=== PATIENT | male | born 1935 | race Caucasian/White ===

== ENCOUNTER 2017-09-04 03:00 | Inpatient (IN) | payer OTHER, MEDICARE ==
[~2017-09-04] VITALS: Ht 172.7 cm; Wt 92.0 kg
[2017-09-04 03:14] LABS: PCO2 Arterial 31.9 mmHg (35-45); PO2 Arterial 80.1 mmHg (80-100)
[2017-09-04 03:16] LABS: BASOPHILS ABSOLUTE AUTO 0.02 K/mm3 (0.00-0.23); BASOPHILS PERCENT AUTO 0 % (0-2); EOSINOPHILS ABSOLUTE AUTO 0.02 K/mm3 (0.00-0.68); EOSINOPHILS PERCENT AUTO 0 % (0-6); Hematocrit 39.6 % (37.0-53.0); Hemoglobin 13.7 g/dL (13.5-17.5); IMMATURE GRAN ABSOLUTE AUTO 0.11 K/mm3 (0.00-0.10); IMMATURE GRAN PERCENT AUTO 1 % (0-1); LYMPHOCYTES ABSOLUTE AUTO 0.56 K/mm3 (0.84-5.20); LYMPHOCYTES PERCENT AUTO 6 % (21-46); MONOCYTES ABSOLUTE AUTO 0.25 K/mm3 (0.16-1.47); MONOCYTES PERCENT AUTO 3 % (4-13); Mean Corpuscular HGB 32.4 pg (26.0-34.0); Mean Corpuscular HGB Conc 34.6 g/dL (31.5-36.5); Mean Corpuscular Volume 94 fL (80-100); NEUTROPHILS ABSOLUTE AUTO 8.95 K/mm3 (1.96-9.15); NEUTROPHILS PERCENT AUTO 90 % (41-73); Platelet Count 172 K/mm3 (150-400); RDW Coefficient Variation 12.9 % (11.7-14.2); RDW Standard Deviation 44.2 fL (35.1-46.3); Red Blood Cell Count 4.23 M/mm3 (4.30-5.90); White Blood Cell Count 9.91 K/mm3 (4.00-11.30)
[2017-09-04] MEDS ORDERED: ATOR80 PO (03:24)
[2017-09-04] MEDS ORDERED: ETOD400 PO (03:25)
[2017-09-04] MEDS ORDERED: GABA400 PO (03:26)
[2017-09-04] MEDS ORDERED: HYDROXYZINE (03:27)
[2017-09-04] MEDS ORDERED: HYDROCODONE (03:27)
[2017-09-04] MEDS ORDERED: Isosorbide Mono30 MG PO (03:28)
[2017-09-04] MEDS ORDERED: LISI5 PO (03:29)
[2017-09-04] MEDS ORDERED: METO25 (03:29)
[2017-09-04] MEDS ORDERED: PRAZ5 PO (03:30)
[2017-09-04] MEDS ORDERED: SENN187 PO (03:30)
[2017-09-04] MEDS ORDERED: Venlafaxine HC100 MG PO (03:31)
[2017-09-04 03:38] LABS: Alanine Aminotransfer (ALT/SGP 33 U/L (12-78); Albumin, Blood 3.1 g/dL (3.4-5.0); Albumin/Globulin Ratio 0.9 (0.8-1.8); Alk Phos 101 U/L (50-136); Anion Gap 9 mmol/L (6-16); Aspartate Aminotrans (AST/SGOT 21 U/L (12-37); Bilirubin, Total 0.6 mg/dL (0.1-1.0); Blood Urea Nitrogen 24 mg/dL (8-24); Bun/Creatinine Ratio 26.7 (12.0-20.0); CO2, Blood 24 mmol/L (21-32); Calcium, Blood 8.5 mg/dL (8.5-10.1); Chloride, Blood 110 mmol/L (98-108); Globulin, Blood 3.4 g/dL (2.2-4.0); Glomerular Filtration Rate >60 (60-); Glucose, Blood 164 mg/dL (70-99); Potassium, Blood 4.6 mmol/L (3.5-5.5); Sodium, Blood 143 mmol/L (136-145); Total Protein, Blood 6.5 g/dL (6.4-8.2)
[2017-09-04 04:19] LABS: Troponin I <0.015 ng/mL (0.000-0.040)
[2017-09-04] MEDS ORDERED: Omeprazole20 M1 (06:51)
[2017-09-04] MEDS ORDERED: IBUP400 PO (06:52)
[2017-09-06] MEDS ORDERED: Prinivil10 MG PO (09:20)
[2017-09-06] MEDS ORDERED: METO50 PO (09:21)
[2017-09-06] MEDS ORDERED: PRAZ5 PO (09:21)
[2017-09-06] MEDS ORDERED: ASPI81CH PO (09:27)
[2017-09-06] MEDS ORDERED: CLOP75 PO (09:27)
== END 2017-09-06 13:54 | disposition home or self-care (01) | DRG 282 ==
LOC: ER 03:00 → MEDS 03:01 → ICUW 09-05 11:28 → MEDS 09-05 20:08
PROVIDERS: Emergency Medicine
PROC: 4A023N7 Measurement of Cardiac Sampling and Pressure, Left Heart, Percutaneous Approach (ICD-10-PCS; principal; 2017-09-05)
PROC: B211YZZ Fluoroscopy of Multiple Coronary Arteries using Other Contrast (ICD-10-PCS; 2017-09-05)
DX: I21.A1 Myocardial infarction type 2 (principal); I25.10 Atherosclerotic heart disease of native coronary artery without angina pectoris; I10 Essential (primary) hypertension; F32.9 Major depressive disorder, single episode, unspecified; E78.5 Hyperlipidemia, unspecified; K21.9 Gastro-esophageal reflux disease without esophagitis
CPT/HCPCS: 36415; 36600; 71046; 76937; 78452; 80053; 82803; 82947; 83690; 84484; 85025; 93005; 93010; 93017; 93306; 93458; 99152; 99153; 99285; A9500; C1769; C9113; J0280; J0360; J1644; J1650; J2250; J2785; J3010; J7030; Q9967

== ENCOUNTER 2018-04-04 21:49 | Emergency (ER) | payer OTHER ==
[~2018-04-04] VITALS: Ht 177.8 cm; Wt 83.9 kg
[~2018-04-04 21:49] MED LIST: ASPI81CH PO; ATOR80 PO; CLOP75 PO; ETOD400 PO; GABA400 PO; HYDROCODONE; HYDROXYZINE; IBUP400 PO; Isosorbide Mono30 MG PO; LISI5 PO; METO25; METO50 PO; Omeprazole20 M1; PRAZ5 PO; Prinivil10 MG PO; SENN187 PO; Venlafaxine HC100 MG PO
[2018-04-04 22:17] LABS: BASOPHILS ABSOLUTE AUTO 0.01 K/mm3 (0.00-0.23); BASOPHILS PERCENT AUTO 0 % (0-2); EOSINOPHILS PERCENT AUTO 0 % (0-6); Hematocrit 38.5 % (37.0-53.0); Hemoglobin 13.3 g/dL (13.5-17.5); IMMATURE GRAN ABSOLUTE AUTO 0.05 K/mm3 (0.00-0.10); IMMATURE GRAN PERCENT AUTO 1 % (0-1); LYMPHOCYTES PERCENT AUTO 5 % (21-46); MONOCYTES ABSOLUTE AUTO 0.44 K/mm3 (0.16-1.47); MONOCYTES PERCENT AUTO 4 % (4-13); Mean Corpuscular HGB 32.1 pg (26.0-34.0); Mean Corpuscular HGB Conc 34.5 g/dL (31.5-36.5); Mean Corpuscular Volume 93 fL (80-100); Mean Platelet Volume 10.5 fL (9.1-12.4); NEUTROPHILS ABSOLUTE AUTO 9.35 K/mm3 (1.96-9.15); NEUTROPHILS PERCENT AUTO 90 % (41-73); Platelet Count 216 K/mm3 (150-400); RDW Coefficient Variation 11.8 % (11.7-14.2); RDW Standard Deviation 40.4 fL (35.1-46.3); Red Blood Cell Count 4.14 M/mm3 (4.30-5.90); White Blood Cell Count 10.35 K/mm3 (4.00-11.30)
[2018-04-04 22:31] LABS: Alanine Aminotransfer (ALT/SGP 32 U/L (12-78); Albumin, Blood 3.6 g/dL (3.4-5.0); Albumin/Globulin Ratio 1.2 (0.8-1.8); Alk Phos 97 U/L (50-136); Anion Gap 10 mmol/L (6-16); Aspartate Aminotrans (AST/SGOT 21 U/L (12-37); Bilirubin, Total 0.3 mg/dL (0.1-1.0); Blood Urea Nitrogen 22 mg/dL (8-24); Bun/Creatinine Ratio 29.2 (12.0-20.0); CO2, Blood 23 mmol/L (21-32); Calcium, Blood 8.9 mg/dL (8.5-10.1); Chloride, Blood 108 mmol/L (98-108); Creatinine, Blood 0.75 mg/dL (0.60-1.20); Globulin, Blood 3.1 g/dL (2.2-4.0); Glomerular Filtration Rate >60 (60-); Glucose, Blood 236 mg/dL (70-99); Potassium, Blood 4.4 mmol/L (3.5-5.5); Sodium, Blood 141 mmol/L (136-145); Total Protein, Blood 6.7 g/dL (6.4-8.2); Troponin I <0.015 ng/mL (0.000-0.040)
== END 2018-04-05 00:33 | disposition home or self-care (01) ==
LOC: ER 21:49
PROVIDERS: Emergency Medicine
DX: R07.2 Precordial pain (principal); Z88.8 Allergy status to other drugs, medicaments and biological substances; Z79.899 Other long term (current) drug therapy; Z79.82 Long term (current) use of aspirin; I25.10 Atherosclerotic heart disease of native coronary artery without angina pectoris; Z87.891 Personal history of nicotine dependence
CPT/HCPCS: 80053; 83880; 84484; 85025; 93005; 93010; 99284-25

== ENCOUNTER 2018-06-27 21:15 | Inpatient (IN) | payer MEDICARE ==
[~2018-06-27] VITALS: Ht 177.8 cm; Wt 89.7 kg
[2018-06-27 21:32] LABS: BASOPHILS ABSOLUTE AUTO 0.01 K/mm3 (0.00-0.23); BASOPHILS PERCENT AUTO 0 % (0-2); EOSINOPHILS PERCENT AUTO 0 % (0-6); Hematocrit 39.7 % (37.0-53.0); Hemoglobin 13.8 g/dL (13.5-17.5); IMMATURE GRAN ABSOLUTE AUTO 0.16 K/mm3 (0.00-0.10); IMMATURE GRAN PERCENT AUTO 2 % (0-1); LYMPHOCYTES PERCENT AUTO 5 % (21-46); MONOCYTES ABSOLUTE AUTO 0.13 K/mm3 (0.16-1.47); MONOCYTES PERCENT AUTO 2 % (4-13); Mean Corpuscular HGB 31.9 pg (26.0-34.0); Mean Corpuscular HGB Conc 34.8 g/dL (31.5-36.5); Mean Corpuscular Volume 92 fL (80-100); Mean Platelet Volume 10.4 fL (9.1-12.4); NEUTROPHILS ABSOLUTE AUTO 6.96 K/mm3 (1.96-9.15); NEUTROPHILS PERCENT AUTO 91 % (41-73); Platelet Count 218 K/mm3 (150-400); RDW Coefficient Variation 11.9 % (11.7-14.2); RDW Standard Deviation 40.1 fL (35.1-46.3); Red Blood Cell Count 4.33 M/mm3 (4.30-5.90); White Blood Cell Count 7.66 K/mm3 (4.00-11.30)
[2018-06-27 21:52] LABS: Alanine Aminotransfer (ALT/SGP 27 U/L (12-78); Albumin, Blood 3.6 g/dL (3.4-5.0); Albumin/Globulin Ratio 1.1 (0.8-1.8); Alk Phos 109 U/L (50-136); Anion Gap 11 mmol/L (6-16); Aspartate Aminotrans (AST/SGOT 15 U/L (12-37); Bilirubin, Total 0.4 mg/dL (0.1-1.0); Blood Urea Nitrogen 23 mg/dL (8-24); Bun/Creatinine Ratio 28.9 (12.0-20.0); CO2, Blood 21 mmol/L (21-32); Calcium, Blood 8.7 mg/dL (8.5-10.1); Chloride, Blood 108 mmol/L (98-108); Globulin, Blood 3.2 g/dL (2.2-4.0); Glomerular Filtration Rate >60 (60-); Glucose, Blood 310 mg/dL (70-99); Potassium, Blood 4.4 mmol/L (3.5-5.5); Sodium, Blood 140 mmol/L (136-145); Total Protein, Blood 6.8 g/dL (6.4-8.2); Troponin I <0.015 ng/mL (0.000-0.040)
[2018-06-27 22:08] LABS: International Normalized Ratio 1.02; Prothrombin Time Results 10.8 Sec (9.7-11.5)
[2018-06-27] MEDS ORDERED: NITR.4SL SL (22:11)
--- NOTE | 2018-06-28 00:15 | NUR ---
ADMIT NOTE : ADMIT 82 YEAR OLD MALE TO ICU 4 PER GURNEY VIA ER TO HOSP, DR MORENO SERVICE. TRANSFER TO BED USING SLIDER SHEET AND 4 ASSIST. MONITOR PLACED SHOWING SINUS RHYTHM . HEART RATE 60'S-70'S DENIES CHEST PAIN OR OTHER DISCOMFORT. LUNGS CLEAR UPPR LOBES WITH DECREASED SOUNDS IN THE BASES WORSE ON R BASE. O2 IN PLACE AT 3L/MIN SPOW2 95-98% RATE 15-20/MIN. ABDOMEN SOFT WITH BOWEL SOUNDS FOUR QUADS. NO EDEMA NOTED PEDAL PULSES PRESENT. BLOOD CONSENT AND RELEASE OF INFORMATION COMPLETED. CONTINUE TO MONITOR AND REPORT CHANGE IN PATIENT CONDITION.
--- NOTE | 2018-06-28 06:30 | NUR ---
SHIFT SUMMARY: RESTS QUIETLY WHEN UNDISTURBED. MONITOR INTACT SHOWING SINUS RHYTHM. HEART RATE 60'S-70'S. DENIES CHEST PAIN. OTHER DISCOMFORT. LUNG SOUNDS CLEAR UPPER LOBES WIH DECREASED SOUNDS IN THE BASES. RESPIRATIONS REGULAR AND EASY AT REST. SPO2 96-98% ABDOMEN SOFT WITH BOWEL SOUNDS FOUR QUADS. VOIDS JAN URINE PER URINAL. REPOSITIONS SELF IN BED. CONTINUE TO MONITOR AND REPORT CHANGE IN PATIENT CONDITION.
--- NOTE | 2018-06-28 07:15 | NUR ---
START OF SHIFT NOTE: PATIENT IS AWAKE, A+Ox4, DENIES PAIN AT THIS TIME, NSR, LUNG SOUNDS ARE CLEAR AND DIMINISHED IN BASES, REPORTS NO SHORTNESS OF BREATH, BT'S PRESENT IN ALL FOUR QUADRANTS, PATIENT IS NPO AT THIS TIME, SOME SIPS OF WATER, USES URINAL, CALL LIGHT IN REACH, WILL CONTINUE TO MONITOR.
--- NOTE | 2018-06-28 08:18 | NUR ---
DR. GUERRIER IN TO SEE PATIENT, ECHO AT BEDSIDE WELL, NEW ORDERS RECEIVED D/T CONTINUOUS HIGH BLOOD PRESSURE, POSSIBLE HEAR CATH TODAY.
--- NOTE | 2018-06-28 10:35 | NUR ---
PATIENT IS SLEEPING AT THIS TIME, NO S/S OF PAIN OR SHORTNESS OF BREATH, CALL LIGHT IN REACH, WILL CONTINUE TO MONITOR.
--- NOTE | 2018-06-28 10:51 | NUR ---
PATIENT TO GRINDER SET UP OPERATOR SURFACE WITH 2 RN'S AND TRANSPORT MONITOR.
--- NOTE | 2018-06-28 13:15 | NUR ---
PATIENT RETURNED FROM STRATEGIC PLANNING DIRECTOR, PATIENT IS AWAKE AND ALERT AND ORIENTED, PATIENT VOIDED 450 CLEAR YELLOW URINE ON ARRIVAL TO ICU ROOM 4, PATIENT TO LAY FLAT FOR 2 HOURS, THEN HOB TO BE RAISED TO 15 DEGREES, AND CONTINUE IF PATIENT IS TOLERATING AND NO BLEEDING NOTED, RIGHT GROIN HAS CLOSURE DEVICE APPLIED, A MYNXGRIP VASCULAR CLOSURE DEVICE, NO SWELLING OR HEMATOMA NOTED, NOT BLEEDING PRESENT, HEPARIN DRIP DISCONTINUED, NITROGLYCERIN DRIP RESTARTED, VSS AND MONITORED EVERY 15 MINUTES, DR. ARRIOLA NOTIFIED AND ASKED ABOUT POSSIBLE CONSULTING OF TONGUE LINING STITCHER, DR. ARRIOLA STATED THAT AT THIS POINT WE WILL JUST WATCH THE PATIENT AND NOT CONSULT, PATIENT IS RESTING COMFORTABLY, CALL LIGHT IN REACH, WILL CONTINUE TO MONITOR.
--- NOTE | 2018-06-28 15:02 | NUR ---
PATIENT RECEIVED 650 MG TYLENOL PO, FOR HEADACHE 08/26, PATIENT STATED "MY NECK HURTS FROM LYING FLAT", VOIDED AGAIN INTO URINAL WITH ASSISTANCE, DENIES CHEST PAIN OR SHORTNESS OF BREATH AT THIS TIME, CALL LIGHT IN REACH, WILL CONTINUE TO MONITOR.
--- NOTE | 2018-06-28 15:25 | NUR ---
PATIENT'S BLOOD PRESSURE CONTINUES TO BE ELEVATED, SEE FLOWSHEET DOCUMENTATION, DR. ARRIOLA NOTIFIED, NEW ORDERS RECEIVED.
--- NOTE | 2018-06-28 15:54 | NUR ---
PATIENT'S HEAD WAS ELEVATED TO 15 DEGREES, TOLERATED WELL, RIGHT GROIN SITE C/D/I, NO SWELLING, BLEEDING, OR HEMATOMA NOTED, SITE IS SOFT TO PALPATION, PATIENT DENIES PAIN AT SITE, PATIENT STATES THAT TYLENOL 650 MG PO WAS EFFECTIVE FOR 5/10 HEADACHE, RECEIVED 25 MG HYDRALAZINE IV FOR ELEVATED BLOOD PRESSURE PER DR. ARRIOLA, CALL LIGHT IN REACH, WILL CONTINUE TO MONITOR.
--- NOTE | 2018-06-28 16:16 | NUR ---
PATIENT'S HEAD WAS RAISED TO 30 DEGREES, PATIENT TOLERATED WELL AT FIRST THEN STATED "SOMETHING IS NOT RIGHT IN HERE" POINTING TO HIS STERNUM, PATIENT WAS LOWERED DOWN TO 15 DEGREES AND REPORTED NO MORE DISCOMFORT IN MIDSTERNUM AREA, CALL LIGHT IN REACH, WILL CONTINUE TO MONITOR.
--- NOTE | 2018-06-28 16:49 | NUR ---
PATIENT CALLED OUT FOR NURSE AND REPORTED A CONTINUOUS STABBING PAIN MID CHEST 11/26, DR. ARRIOLA NOTIFIED, NEW ORDERS RECEIVED, EKG DONE, MORPHINE 2 MG IV GIVEN ORDERED, PATIENT STATED THAT MORPHINE IS STARTING TO WORK, CALL LIGHT IN REACH, WILL CONTINUE TO MONITOR.
--- NOTE | 2018-06-28 17:02 | NUR ---
DR. ARRIOLA NOTIFIED ABOUT EKG RESULTS, AND EFFECTIVENESS OF MORPHINE, DR. ARRIOLA COMMENTED "WHY ARE YOU CALLING ME", ANSWER "TO GIVE YOU AN UPDATE ON THE PATIENT", PATIENT REPORTS "I FEEL BETTER", HOWEVER, STILL SLIGHT GRIMACING NOTED, PATIENT APPEARS MORE COMFORTABLE, CALL LIGHT IN REACH, WILL CONTINUE TO MONITOR.
--- NOTE | 2018-06-28 17:51 | NUR ---
SHIFT SUMMARY NOTE: PATIENT IS ALERT AND ORIENTED, EATING DINNER, AT BEDSIDE ASSISTING PATIENT WITH DINNER, PATIENT'S CONTINUES TO BE ON NTG DRIP AT 9 MCG, ALSO RECEIVED 2 MG MORPHINE IV FOR ONE EPISODE OF CHEST PAIN 11/26 WHICH HAD PATIENT IN TEARS, BLOOD PRESSURE CONTROLLED WITH HYDRALAZINE 25 MG EVERY 4 HOURS, PATIENT IS AFEBRILE, RIGHT GROIN MYNX SEAL C/D/I, NO S/S OF BLEEDING, HEMATOMA, REPORTS NO PAIN WITH PALPATION, FOR DETAILS SEE DETAILS SEE DOCUMENTATION UNDER WOUND INCISION/PROCESS INTERVENTION, DENIES CHEST PAIN AT THIS TIME, NO SHORTNESS OF BREATH, ON RA SATING IN MID TO UPPER 90'S, USES CALL LIGHT APPROPRIATELY AND CALLS FOR ASSISTANCE WITH URINAL, GOOD URINE OUTPUT, CLEAR LIGHT YELLOW URINE, FOR DETAILS SEE SHIFT ASSESSMENT DOCUMENTATION AND NURSES NOTES, CALL LIGHT IN REACH, WILL CONTINUE TO MONITOR AND GIVE REPORT TO ONCOMING PETROL TANKER DRIVER.
--- NOTE | 2018-06-28 19:15 | NUR ---
ASSUMED PT CARE; BEDSIDE REPORT GIVEN. PT SITTING AT A 30 DEGREE ANGLE UPON ENTERTING ROOM. VERY PLEASANT AND COOPERATIVE WITH CARE. ALERT AND ORIENTED AND ABLE TO MAKE NEEDS KNOWN. NITROGLYCERIN GTT AT 9MCG/MIN WITH SBP'S 160'S. PT C/O MID STERNAL, SHARP, STABBING CHEST PAIN RATING IT A 6/10; DECLINES PAIN RADIATING ELSEWHERE; HOWEVER, DOES STATE IT HURTS WORSE ON INSPIRATION. PT AVAILABLE FOR PRN MORPHINE SULFATE; INFORMED PT I WOULD RETURN WITH MEDICATIONS FOR PAIN SHORTLY. CALL LIGHT IN REACH.
--- NOTE | 2018-06-28 19:30 | NUR ---
RETURNED WITH PRN MORPHINE SULFATE R/T CHEST PAIN. INFORMED PT TO UPDATE ME IMMEDIATELY IF PAIN WASN'T RESOLVED BY THE MORPHINE; PT VERBALIZED UNDERSTANDING.
--- NOTE | 2018-06-28 22:00 | NUR ---
CHEST PAIN RELIEVED BY MORPHINE SULFATE. PT STILL C/O HEADACHE; ADMINISTERED APAP PER ORDERS.
[2018-06-29 03:49] LABS: Anion Gap 9 mmol/L (6-16); Blood Urea Nitrogen 20 mg/dL (8-24); Bun/Creatinine Ratio 27.3 (12.0-20.0); CO2, Blood 21 mmol/L (21-32); Calcium, Blood 8.4 mg/dL (8.5-10.1); Chloride, Blood 115 mmol/L (98-108); Creatinine, Blood 0.73 mg/dL (0.60-1.20); Glomerular Filtration Rate >60 (60-); Glucose, Blood 121 mg/dL (70-99); Potassium, Blood 4.2 mmol/L (3.5-5.5); Sodium, Blood 145 mmol/L (136-145)
--- NOTE | 2018-06-29 06:35 | NUR ---
END OF SHIFT SUMMARY PT HAS SLEPT THROUGH MOST OF NIGHT WITH NO C/O PAIN, BESIDES START OF SHIFT. MORPHINE SULFATE WAS EFFECTIVE AND RESOVLED CHEST PAIN. NITRO DRIP HAS REMAINED OFF SINCE 2129. PT HAD SOME LOW BLOOD PRESSURES AROUND 2129 AND WAS MONITORED CLOSELY T/O NIGHT. PT FLUCTUATED FROM LOW BLOOD PRESSURES TO A LABILE HIGH BLOOD PRESSURE AND BACK TO LOW AGAIN. PT WOKE UP ONCE WITH A NIGHTMARE AND HOLLERED OUT; ELEVATED BP TO 150'S. AROUND 0500 THIS MORNING PT'S BP'S STARTED INCREASING AGAIN TO 170'S; LOPRESSOR 50MG PO WAS ADMINISTERED EARLY DOSE WAS SCHEDULED FOR 0900; CHARGE NURSE NOTIFIED AND AGREED WITH TREATMENT. PT STATES HE HAS HAD A HEADACHE ALL NIGHT LONG AND TYLENOL WAS UNEFFECTIVE FOR HIM. RIGHT GROIN SITE REMAINS WITH TEGADERM CHG DRESSING IN PLACE WITH NO SIGNS OF BLEEDING, HEMATOMA, REDNESS, SWELLING, OOZING, OR TENDERNESS AT SITE. PT RESTING IN BED. CALL LIGHT IN REACH. DOES NOT APPEAR TO BE IN ANY DISTRESS AT THIS TIME.
--- NOTE | 2018-06-29 07:15 | NUR ---
START OF SHIFT NOTE: RECEIVED REPORT FROM ROSA MARIA RESENDEZ, ASSUMED CARE, PATIENT IS AWAKE, ALERT AND ORIENTED, NSR WITH BLOOD PRESSURE IN 180'S AFTER BP'S BEING WNL DURING NOC SHIFT, LS CLEAR, PATIENT USES URINAL WITH GOOD CLEAR YELLOW URINE OUTPUT, BOWEL TONES ARE PRESENT IN ALL FOUR QUADRANTS, AFEBRILE, DENIES CHEST PAIN OR PRESSURE, NO DISCOMFORT REPORTED, DR. ARRIOLA IN TO SEE PATIENT, NEW ORDERS RECEIVED, PATIENT OOB AND UP TO CHAIR FOR BREAKFAST, DOING WELL WITH SBA ONLY, EATING BREAKFAST WITH GOOD APPETITE, CALL LIGHT IN REACH, WILL CONTINUE TO MONITOR.
[2018-06-29] MEDS ORDERED: METO50 PO ×2 (09:35→09:41)
--- NOTE | 2018-06-29 13:58 | NUR ---
PATIENT'S IN, AT BEDSIDE, DISCHARGE INSTRUCTIONS VERBAL AND WRITTEN PROVIDED AND EXPLAINED TO PATIENT AND , BOTH VERBALIED UNDERSTANDING, PATIENT SIGNED DISCHARGE SHEET, PIV'S REMOVED WITH TIP INTACT, PATIENT TOLERATED WELL, PATIENT IS GETTING DRESSED AND WILL CALL WHEN READY.
--- NOTE | 2018-06-29 14:27 | NUR ---
PATIENT LEFT ICU AND HOSPITAL AT 14:20 VIA WHEELCHAIR, ESCORTED TO CAR AT ER ENTRANCE, PROVIDING RIDE HOME.
== END 2018-06-29 14:25 | disposition home or self-care (01) | DRG 248 ==
LOC: ER 21:15 → ICUW 23:35 → ICUE 23:35
PROVIDERS: Emergency Medicine; Hospitalist; ADMIT Hospitalist
PROC: 4A023N7 Measurement of Cardiac Sampling and Pressure, Left Heart, Percutaneous Approach (ICD-10-PCS; principal; 2018-06-28)
PROC: 02703DZ Dilation of Coronary Artery, One Artery with Intraluminal Device, Percutaneous Approach (ICD-10-PCS; 2018-06-28)
PROC: B211YZZ Fluoroscopy of Multiple Coronary Arteries using Other Contrast (ICD-10-PCS; 2018-06-28)
DX: I25.110 Atherosclerotic heart disease of native coronary artery with unstable angina pectoris (principal); I21.4 Non-ST elevation (NSTEMI) myocardial infarction; I10 Essential (primary) hypertension; E78.5 Hyperlipidemia, unspecified; M48.00 Spinal stenosis, site unspecified; F32.9 Major depressive disorder, single episode, unspecified; Z79.82 Long term (current) use of aspirin; Z87.891 Personal history of nicotine dependence
CPT/HCPCS: 36415; 71045; 80048; 80053; 84484; 85025; 85347; 85610; 85730; 92920; 93005; 93010; 93306; 93308; 93459; 96365; 96366; 96368; 96375; 99152; 99153; 99285-25; C1725; C1760; C1769; C1887; J0360; J1430; J1644; J2250; J2270; J2720; J3010; J7030; Q9967

== ENCOUNTER 2018-11-11 20:28 | Inpatient (IN) | payer OTHER, MEDICARE ==
[~2018-11-11] VITALS: Ht 177.8 cm; Wt 88.1 kg
[~2018-11-11 20:28] MED LIST changes: +NITR.4SL SL
[2018-11-11 20:52] LABS: BASOPHILS ABSOLUTE AUTO 0.02 K/mm3 (0.00-0.23); BASOPHILS PERCENT AUTO 0 % (0-2); EOSINOPHILS ABSOLUTE AUTO 0.07 K/mm3 (0.00-0.68); EOSINOPHILS PERCENT AUTO 1 % (0-6); Hemoglobin 13.8 g/dL (13.5-17.5); IMMATURE GRAN ABSOLUTE AUTO 0.03 K/mm3 (0.00-0.10); IMMATURE GRAN PERCENT AUTO 0 % (0-1); LYMPHOCYTES ABSOLUTE AUTO 1.11 K/mm3 (0.84-5.20); LYMPHOCYTES PERCENT AUTO 14 % (21-46); MONOCYTES ABSOLUTE AUTO 0.44 K/mm3 (0.16-1.47); MONOCYTES PERCENT AUTO 6 % (4-13); Mean Corpuscular HGB 32.2 pg (26.0-34.0); Mean Corpuscular HGB Conc 34.5 g/dL (31.5-36.5); Mean Corpuscular Volume 93 fL (80-100); Mean Platelet Volume 10.9 fL (9.1-12.4); NEUTROPHILS ABSOLUTE AUTO 6.16 K/mm3 (1.96-9.15); NEUTROPHILS PERCENT AUTO 79 % (41-73); Platelet Count 166 K/mm3 (150-400); RDW Coefficient Variation 11.9 % (11.7-14.2); RDW Standard Deviation 40.5 fL (35.1-46.3); Red Blood Cell Count 4.29 M/mm3 (4.30-5.90); White Blood Cell Count 7.83 K/mm3 (4.00-11.30)
[2018-11-11 21:10] LABS: D-Dimer, Quantitative 0.32 mg/L FEU (0.00-0.52); International Normalized Ratio 0.95; Prothrombin Time Results 10.1 Sec (9.7-11.5)
[2018-11-11 21:19] LABS: Troponin I <0.015 ng/mL (0.000-0.040)
[2018-11-11 21:20] LABS: Alanine Aminotransfer (ALT/SGP 23 U/L (12-78); Albumin, Blood 3.4 g/dL (3.4-5.0); Albumin/Globulin Ratio 1.2 (0.8-1.8); Alk Phos 96 U/L (50-136); Anion Gap 7 mmol/L (6-16); Aspartate Aminotrans (AST/SGOT 16 U/L (12-37); Bilirubin, Total 0.2 mg/dL (0.1-1.0); Blood Urea Nitrogen 21 mg/dL (8-24); Bun/Creatinine Ratio 25.8 (12.0-20.0); CO2, Blood 25 mmol/L (21-32); Calcium, Blood 8.4 mg/dL (8.5-10.1); Chloride, Blood 111 mmol/L (98-108); Creatinine, Blood 0.81 mg/dL (0.60-1.20); Globulin, Blood 2.9 g/dL (2.2-4.0); Glomerular Filtration Rate >60 (60-); Glucose, Blood 261 mg/dL (70-99); Sodium, Blood 143 mmol/L (136-145); Total Protein, Blood 6.3 g/dL (6.4-8.2)
[2018-11-11] MEDS ORDERED: ISOMON20 PO (21:49)
[2018-11-11] MEDS ORDERED: Isosorbide Mono30 MG PO (21:49)
[2018-11-11] MEDS ORDERED: MELATONIN5 M1 PO (21:49)
[2018-11-11] MEDS ORDERED: VITAMIN D-32000 UNIT PO (21:50)
[2018-11-11] MEDS ORDERED: FISH OIL 1,0001 EAC1 PO (21:51)
[2018-11-11] MEDS ORDERED: Avodart0.5 MG PO (21:53)
--- NOTE | 2018-11-12 00:40 | NUR ---
INITIAL ASSESSMENT PATIENT ARRIVED TO ICU FROM ER AT 0026. PATIENT TRANSFERRED SELF TO BED. PATIENT TAKOTNA. PATIENT ALERT AND OREINTED X 4. AFEBRILE. PATIENT DENIES PAIN BUT STATES THAT HE HAS 2/10 JAW PRESSURE. PATIENT STATES THIS IS MANAGEABLE AT THIS TIME. 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 PATIENT SATTING 90% AND GREATER ON 2 L NC. LUNGS CLEAR IN UPPER LOBES. CRACKLES NOTED IN LOWER LOBES. PATIENT DENIES COUGH. PATIENT IN SR WITH FIRST DEGREE AV BLOCK. HR IN THE 60S. SBP 190S TO 205. 1+ EDEMA NOTED IN BLES. ABDOMEN MODERATELY DISTENDED, SOFT, NONTENDER, WITH NORMOACTIVE BS. PATIENT REPORTS LAST BM ON THE . URINAL AT BEDSIDE. PATIENT STATES THAT AT HOME HE IS SUPPOSED TO STRAIGHT CATH HIMSELF AROUND 3 TIMES PER DAY FOR RETENTION. PATIENT STATES THAT HE USUALLY DOES IT OT PER DAY AND USUALLY BEFORE BED. PATIENT HAS ABRASION TO L FA; PATIENT STATES HE LOST BALANCE AND FELL AT HOME. NITRO DRIP INFUSING AT 10 MCG/ MINUTE. PATIENT ORIENTED TO UNIT, ROOM AND CALL SYSTEM. BED LOW, CALL LIGHT IN REACH. WILL CONTINUE TO MONITOR PATIENT FREQUENTLY T/O SHIFT.
[2018-11-12] MEDS ORDERED: Norco 10-325 T1 EACH PO (01:43)
--- NOTE | 2018-11-12 02:35 | NUR ---
DR. PEARSON INFORMED THAT PATIENT STATES HE IS SUPPOSED TO STRAIGHT CATH HIMSELF AT HOME FOR URINARY RETENTION AROUND 3 TIMES/ DAY BUT USUALLY ONLY DOES IT AT NIGHT. INFORMED THAT PATIENT VOIDED 575 MLS AND THE BLADDER SCANNED POST VOID. BLADDER SCAN SHOWED 461 MLS OF URINE IN BLADDER. ORDERS RECEIVED TO BLADDER SCAN Q6H AND STRAIGHT CATH FOR OVER 300 MLS.
[2018-11-12 03:07] LABS: Source, Urine Catheter
[2018-11-12 03:15] LABS: Bilirubin, Urine Neg (Neg); Blood, Urine Neg (Neg); Glucose Qualitative, Urine Neg (Neg); Ketones, Urine Neg (Neg); Leukocyte Esterase, Urine 2+ (Neg); Nitrite, Urine Pos (Neg); Protein, Urine Neg (Neg); Specific Gravity, Urine 1.015 (1.003-1.022); Urobilinogen, Urine 1+ (Normal)
[2018-11-12 03:22] LABS: Appearance, Urine Hazy (Clear); Color, Urine Yellow (P-Yellow)
[2018-11-12 03:23] LABS: Bacteria Many /hpf; Red Blood Cells, Urine Not Seen /hpf (0-2); Squamous Epithelial Cells Not Seen /hpf (Few)
--- NOTE | 2018-11-12 04:35 | NUR ---
PATIENT SLEEPING SOUNDLY UPON ENTERING ROOM. PATIENT AFEBRILE. PATIENT DENIES ANY PAIN OR CHEST PRESSURE AT THIS TIME. HR IN THE 60S, SBP IN THE 160S. NITRO DRIP AT 100 MCG/ MINUTE. NO OTHER ACUTE CHANGES TO NOTE ON AT THIS TIME. WILL CONTINUE TO MONITOR.
[2018-11-12 04:53] LABS: Hematocrit 37.2 % (37.0-53.0); Mean Corpuscular HGB 31.5 pg (26.0-34.0); Mean Corpuscular HGB Conc 34.9 g/dL (31.5-36.5); Mean Platelet Volume 10.7 fL (9.1-12.4); Platelet Count 171 K/mm3 (150-400); RDW Coefficient Variation 11.7 % (11.7-14.2); RDW Standard Deviation 38.1 fL (35.1-46.3); Red Blood Cell Count 4.13 M/mm3 (4.30-5.90); White Blood Cell Count 8.89 K/mm3 (4.00-11.30)
[2018-11-12 04:54] LABS: Mean Corpuscular Volume 90 fL (80-100)
[2018-11-12 05:09] LABS: Alanine Aminotransfer (ALT/SGP 20 U/L (12-78); Albumin, Blood 3.1 g/dL (3.4-5.0); Albumin/Globulin Ratio 1.1 (0.8-1.8); Alk Phos 84 U/L (50-136); Anion Gap 5 mmol/L (6-16); Aspartate Aminotrans (AST/SGOT 31 U/L (12-37); Bilirubin, Total 0.3 mg/dL (0.1-1.0); Blood Urea Nitrogen 16 mg/dL (8-24); Bun/Creatinine Ratio 22.8 (12.0-20.0); CO2, Blood 26 mmol/L (21-32); Calcium, Blood 8.5 mg/dL (8.5-10.1); Chloride, Blood 113 mmol/L (98-108); Globulin, Blood 2.7 g/dL (2.2-4.0); Glomerular Filtration Rate >60 (60-); Glucose, Blood 125 mg/dL (70-99); Potassium, Blood 3.8 mmol/L (3.5-5.5); Sodium, Blood 144 mmol/L (136-145); Total Protein, Blood 5.8 g/dL (6.4-8.2)
[2018-11-12 05:40] LABS: Troponin I 5.3 ng/mL (0.000-0.040)
--- NOTE | 2018-11-12 06:07 | NUR ---
SHIFT SUMMARY PATIENT SLEPT ON AND OFF SINCE BEING ADMITTED TO UNIT. PATIENT REMAINED ALERT AND ORIENTED X 4, EEK. PATIENT REMAINED AFEBRILE. PATIENT COMPLAINED OF SOME PRESSURE IN JAW WHEN FIRST ARRIVED TO UNIT BUT LATER STATED HE HAD NO PAIN AND NO MORE PRESSURE IN HIS JAW. PATIENT REMAINED ON 2 L NC. PATIENT REMAINED IN SR WITH FIRST DEGREE AV BLOCK. HR 60S TO 70S. SBP RANGED FROM 140S TO 205. PATIENT ADMITTED TO UNIT ON NITRO DRIP AT 10 MCG/ MINUTE. NITRO DRIP IS NOW AT 100 MCG/ MINUTE. PATIENT GIVEN PRN LABETALOL OT FOR SBP OVER 160. PATIENT CONTINUES TO DENY NAUSEA. PATIENT DID NOT HAVE BM THIS SHIFT. PATIENT USING BEDSIDE URINAL. PATIENT IS SUPPOSED TO STRAIGHT CATH AT HOME. BLADDER SCAN PERFORMED POST VOID AND SHOWED THAT 461 MLS REMAINED IN BLADDER. ORDERS NOW IN PLACE TO BLADDER SCAN Q6H AND STRAIGHT CATH FOR OVER 300 MLS OF URINE IN BLADDER. URINE IS DARK YELLOW IN COLOR AND FOUL SMELLING. UA SENT. NO CHANGE IN SKIN NOTED. PATIENT HAS BEEN REPOSITIONING SELF T/O SHIFT. CARDIO CONSULT CALLED FOR THIS AM. PATIENT HAS NO COMPLAINTS AT THIS TIME. BED LOW, CALL LIGHT IN REACH. WILL BE GIVING REPORT TO ONCOMING DAY SHIFT NURSE SHORTLY.
--- NOTE | 2018-11-12 08:13 | NUR ---
Recieved report from Krystina CRANE. Patient alert and supine in bed. He is on 2L O2 via NC and reduced to RA and sats mid 90%'s. He states he has back pain and will medicate per MAR. He tolerated all am PO meds. Dr Martinez is in room and made him NPO until Dr Sierra comes and sees him. He is able to communicate his needs. He has 18ga LAC dressing intact and site WNL's and is infusing Heparin at 13 u/kg/hr. He also has 18ga RH dressing intact and site WNL's and is infusing Nitroglycerin at 110 mcg/min with systolics in the 160-170's. He is currently talking with on phone.
--- NOTE | 2018-11-12 09:30 | NUR ---
Dr Sierra into see patient and dc'd nitro and heparin gtt. Patient has been resting. They will be taking to labor delivery specialist at 1400. Patient resting.
--- NOTE | 2018-11-12 11:30 | NUR ---
All gtt remain off and should be going to phlebotomist medical lab assistant at 1400. Patient continues to rest in bed and awakens to care. He remains hypertensive and Dr. Sierra knows. his sats low to mid 90%'s on RA.
--- NOTE | 2018-11-12 14:40 | NUR ---
senior laboratory technician is here and taking patient to laboratory technician.
--- NOTE | 2018-11-12 14:42 | NUR ---
patient returned from [facility] laborer and is going to need follow up with Dr Tavera at [facility] for secondary cath. He is still hypertensive and Dr Sierra wrot order for [facility].
--- NOTE | 2018-11-12 15:00 | NUR ---
Right groin site has some oozing and filled site. He remains hypertensive and have given labatealol several times and notified Dr Sierra. Patient resting with at bedside. HR 80 and NSR. Patient denies any current pain. Had long discussion after Dr Sierra left and reexplained information slowly.
--- NOTE | 2018-11-12 18:17 | NUR ---
Conatacted Dr Sierra as patient remains hypertensive in the 190's and had me give anothe 10mg Labatelol and signed off and wanted Dr Nation to manage and he came by and wrote for [place]. The patient can go home if systolic 160 or less. Changed right groin dressing to Joel and has smaller than dime size blood spot.. Patient sitting up eating dinner on RA.
--- NOTE | 2018-11-12 20:15 | NUR ---
INITIAL ASSESSMENT PATIENT RESTING QUIETLY IN BED UPON ENTERING ROOM. PATIENT [place], ALERT AND ORIENTED X 4. PATIENT AFEBRILE. PATIENT STATES HE HAS N/T IN BLES BUT THAT IT IS NORMAL FOR HIM. PATIENT REPOSITIONING SELF IN BED. SBA WHEN OOB. PATIENT STATES HE HAS SMALL AMOUNT OF PRESSURE IN CHEST BUT THAT IT IS MANAGEABLE. PATIENT SATTING 90% AND GREATER ON RA. LUNGS CLEAR IN UPPER LOBES AND DIMINISHED IN LOWER LOBES. DENIES COUGH. PATIENT IN SR WITH FIRST DEGREE AV BLOCK. HR IN THE 80S, SBP IN THE 120S. TRACE EDEMA NOTED TO BLES. ABDOMEN MODERATELY DISTENDED, SOFT, NONTENDER, WITH NORMOACTIVE BS. LAST BM ON . PATIENT DENIES NAUSEA. URINAL AT BEDSIDE. PATIENT VOIDING YELLOW COLORED URINE. PATIENT HAS ABRASION ON L FA FROM FALL AT HOME- DRESSING C/D/I. PERCLOSE TO ACETYLENE TORCH SOLDERER ACCESS SITE IN R GROIN. SITE WNL- NO BLEEDING, BRUISING, OR HEMATOMA NOTED. BED LOW, CALL LIGHT IN REACH. WILL CONTINUE TO MONITOR PATIENT FREQUENTLY THROUGHOUT SHIFT.
--- NOTE | 2018-11-12 21:52 | NUR ---
SPOKE TO DR. ZEPEDA AND INFORMED THAT PATIENT'S BP HAS DECREASED TO SBP OF 80S TO 90S. INFORMED THAT PATIENT HAS CHF, THAT LUNGS SOUND CLEAR, TRACE EDEMA TO BLES, AND THAT HAS BEEN RECEIVING MULTIPLE SCHEDULED BP MEDICATIONS BECAUSE OF CONTINUING HIGH BPS. ORDER RECEIVED.
--- NOTE | 2018-11-13 00:30 | NUR ---
PATIENT SLEEPING SOUNDLY. NO SIGNS OF PAIN OR DISCOMFORT. PATIENT AFEBRILE. PATIENT DECREASED FROM 1 L NC TO RA AND REMAINS SATTING 90% AND GREATER. HR 50S TO 60S. SBP IN THE 150S. R GROIN SITE REMAINS STABLE- NO BLEEDING, BRUISING, HEMATOMA NOTED. NO OTHER ACUTE CHANGES TO NOTE ON AT THIS TIME. WILL CONTINUE TO MONITOR.
--- NOTE | 2018-11-13 04:51 | NUR ---
PATIENT SLEEPING UPON ENTERING ROOM. PATIENT AFEBRILE. PATIENT GIVEN PRN PAIN MEDICATION FOR COMPLAINT OF CHRONIC BACK PAIN. VSS. R GROIN SITE REMAINS STABLE. BLADDER SCAN POST VOID SHOWED 408 MLS IN BLADDER. PATIENT IS BEING STRAIGHT CATHED AT THIS TIME. NO OTHER CHANGES TO NOTE ON AT THIS TIME. WILL CONTINUE TO MONITOR.
--- NOTE | 2018-11-13 06:39 | NUR ---
SHIFT SUMMARY PATIENT SLEPT MOST OF THE NIGHT. PATIENT REMAINED ALERT AND ORIENTED X 4, AFEBRILE. PATIENT HAD COMPLAINT OF CHRONIC BACK PAIN OT DURING SHIFT; PATIENT REPORTED RELIEF WITH PRN NORCO. PATIENT REMAINED SATTING 90% AND GREATER ON RA TO 1 L NC. PATIENT SB TO SR WITH FIRST DEGREE AV BLOCK. HR 50S TO 70S. SBP MOSTLY STABLE EXCEPT FOR AT BEGINNING OF SHIFT SHORT TIME AFTER HS BP MEDS GIVEN AND SBP DOWN TO 80S. 500 CC NS GIVEN OVER 2 HOURS; BP FINE THE REST OF THE NIGHT. PATIENT HAD BM THIS MORNING. PATIENT VOIDED T/O SHIFT. BLADDER SCAN POST VOID, IN MIDDLE OF SHIFT, OF 408 MLS. PATIENT STRAIGHT CATHED AND 350 MLS OUT. URINE YELLOW IN COLOR. NO CHANGE TO SKIN. PATIENT REPOSITIONED SELF T/O SHIFT. PATIENT HAS NO COMPLAINTS AT THIS TIME. BED LOW, CALL LIGHT IN REACH. WILL BE GIVING REPORT TO ONCOMING DAY SHIFT NURSE SHORTLY.
--- NOTE | 2018-11-13 09:05 | NUR ---
Recieved report from Krystina CRANE. Patient was restoring at start of shift. He awakens meeta care and is able to communicate his needs. He is on RA and sats mid 90%'s. He uses urinal appropriately, and some urine retention. He sat up in bed and tolerate 100% of breakfast. He has mepelex dressing to LFA for skin tear. Right groin site from post cath has brian dressing that has about dime size blood spot that is dried. He has been hypertensive and gave am meds to help.
[2018-11-13] MEDS ORDERED: AMLO10 PO (09:19)
--- NOTE | 2018-11-13 11:32 | NUR ---
Patient arrived and gave them packet of all information for Dr Tavera visit. Disc of information, ekg's, cath report. Called and left message with Dr Tavera's answering service and faxed cath report. Oatient got dressed and IV pulled intact and siet WNL's and he was placed in chair and taken to POV. Patient returned understanding of all information and will follow up tomorrow to check understanding.
== END 2018-11-13 11:20 | disposition home or self-care (01) | DRG 287 ==
LOC: ER 20:28 → ICUW 20:29 → ER 20:29 → ICUW 11-12 00:09
PROVIDERS: Emergency Medicine; ADMIT Internal Medicine
PROC: 4A023N7 Measurement of Cardiac Sampling and Pressure, Left Heart, Percutaneous Approach (ICD-10-PCS; principal; 2018-11-12)
PROC: B211YZZ Fluoroscopy of Multiple Coronary Arteries using Other Contrast (ICD-10-PCS; 2018-11-12)
DX: I25.10 Atherosclerotic heart disease of native coronary artery without angina pectoris (principal); I16.1 Hypertensive emergency; I10 Essential (primary) hypertension; Z95.1 Presence of aortocoronary bypass graft; E78.5 Hyperlipidemia, unspecified; R73.03 Prediabetes; M48.00 Spinal stenosis, site unspecified; M19.90 Unspecified osteoarthritis, unspecified site; F32.9 Major depressive disorder, single episode, unspecified; Z79.01 Long term (current) use of anticoagulants; Z79.82 Long term (current) use of aspirin; R73.9 Hyperglycemia, unspecified
CPT/HCPCS: 36415; 51701; 71045; 80053; 81001; 82550; 84484; 85025; 85027; 85379; 85610; 85730; 87077; 87086; 87186; 93005; 93010; 93455; 96365; 96375; 96376; 99152; 99153; 99285-25; C1760; C1769; G0378; J0696; J1644; J1650; J2250; J2270; J3010; J7030; J7040; Q9967

== ENCOUNTER 2021-12-20 06:20 | Observation (INO) | payer OTHER ==
[~2021-12-20] VITALS: Ht 175.3 cm; Wt 81.7 kg
[~2021-12-20 06:20] MED LIST changes: +AMLO10 PO; +ATOR40TA PO; -ATOR80 PO; +Avodart0.5 MG PO; +FISH OIL 1,0001 EAC1 PO; +ISOMON20 PO; +MELATONIN5 M1 PO; +Norco 10-325 T1 EACH PO; -Prinivil10 MG PO; +VITAMIN D-32000 UNIT PO; +ZESTRIL40 M1 PO
[2021-12-20 08:26] LABS: BASOPHILS ABSOLUTE AUTO 0.02 K/mm3 (0.00-0.23); BASOPHILS PERCENT AUTO 0 % (0-2); EOSINOPHILS ABSOLUTE AUTO 0.01 K/mm3 (0.00-0.68); EOSINOPHILS PERCENT AUTO 0 % (0-6); Hematocrit 33.3 % (37.0-53.0); Hemoglobin 11.4 g/dL (13.5-17.5); IMMATURE GRAN ABSOLUTE AUTO 0.06 K/mm3 (0.00-0.10); IMMATURE GRAN PERCENT AUTO 1 % (0-1); LYMPHOCYTES ABSOLUTE AUTO 0.53 K/mm3 (0.84-5.20); LYMPHOCYTES PERCENT AUTO 4 % (21-46); MONOCYTES ABSOLUTE AUTO 0.94 K/mm3 (0.16-1.47); MONOCYTES PERCENT AUTO 8 % (4-13); Mean Corpuscular HGB 32.6 pg (26.0-34.0); Mean Corpuscular HGB Conc 34.2 g/dL (31.5-36.5); Mean Corpuscular Volume 95 fL (80-100); Mean Platelet Volume 10.5 fL (9.1-12.4); NEUTROPHILS ABSOLUTE AUTO 10.85 K/mm3 (1.96-9.15); NEUTROPHILS PERCENT AUTO 87 % (41-73); Platelet Count 176 K/mm3 (150-400); RDW Coefficient Variation 12.3 % (11.7-14.2); RDW Standard Deviation 42.9 fL (35.1-46.3); White Blood Cell Count 12.41 K/mm3 (4.00-11.30)
[2021-12-20 08:47] LABS: Albumin, Blood 3.3 g/dL (3.4-5.0); Albumin/Globulin Ratio 1.2 (0.8-1.8); Bilirubin, Total 0.6 mg/dL (0.1-1.0); Bun/Creatinine Ratio 28.6 (12.0-20.0); Calcium, Blood 8.7 mg/dL (8.5-10.1); Creatinine, Blood 0.91 mg/dL (0.60-1.20); Globulin, Blood 2.7 g/dL (2.2-4.0); Potassium, Blood 4.2 mmol/L (3.5-5.5)
[2021-12-20 09:42] LABS: Influenza A, PCR NEGATIVE (NEGATIVE); Influenza B, PCR NEGATIVE (NEGATIVE); Resp Syncytial Virus, PCR NEGATIVE (NEGATIVE)
[2021-12-20 09:54] LABS: SARS-Cov-2 (COVID-19) PCR, MMC POSITIVE (NEGATIVE)
--- NOTE | 2021-12-20 17:28 | NUR ---
PT HAS BEEN IN ROOM ALL AFTERNOON AND IS SETTLED IN WELL. PT AOX4 AND COOPERATIVE OF CARE. PT CONTINUES TO HAVE L RIB FX PAIN AND IS BEING TREATED PER EMAR. PT ALSO STATED HE STRAIGHT CATHS AND HOME AND ONLY DOES THIS IF NEEDED. DR CROWLEY MADE ORDERS TO BLADDER SCAN DAILY AND PT WAS SCANNED WITH OVER 999ML. STRAIGHT CATH PREFORMED AND 1100MLS WAS EMPTIED. PT THEN STATED HIS DOCTOR WANTED HIM TO STRIAGHT CATH THREE TIMES PER DAY. BLADDER SCAN ORDER HAS BEEN CHANGED ACCORDINGLY. CALL LIGHT IS WITHIN REACH WILL CONTINUE TO MONITOR.
--- NOTE | 2021-12-21 03:00 | NUR ---
SHIFT SUMMARY; PATIENT AO X 4 DURING NOC SHIFT. MEDICATED WITH PAIN MEDICINE X 2 FOR RIB PAIN. PATIENT IS ALSO STRAIGHT CATHED FOR BLADDER SCAN SHOWING >850 IN HIS BLADDER. PER PATIENT HE STRAIGHT CATHS HIMSELF AT LEAST TID AND SOMETIMES QID. 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 HIS VITAL SIGNS SHOW PATIENT IS HYPERTENSIVE. OTHER VS ARE WNL. HE IS ASYMPTOMATIC. RECEIVING BP MEDICATIONS AT 2100 PER ORDER. HIS LUNGS ARE CLEAR HOWEVER PATIENT IS BREATHING VERY SHALLOW IT CAUSES HIS MUSCLES IN HIS CHEST TO SPASM WHEN HE TAKES A DEEP BREATH OR COUGHS. WILL REMAIN AVAILABLE FOR THIS PATIENT FOR ANY WANTS OR NEEDS UNTIL REPORT AND HAND OFF TO DAY SHIFT RN.
[2021-12-21 05:07] LABS: Hemoglobin 11.6 g/dL (13.5-17.5); Mean Corpuscular HGB 32.7 pg (26.0-34.0); Mean Corpuscular HGB Conc 34.1 g/dL (31.5-36.5); Mean Corpuscular Volume 96 fL (80-100); Mean Platelet Volume 10.4 fL (9.1-12.4); Platelet Count 163 K/mm3 (150-400); RDW Standard Deviation 42.5 fL (35.1-46.3); Red Blood Cell Count 3.55 M/mm3 (4.30-5.90); White Blood Cell Count 8.67 K/mm3 (4.00-11.30)
[2021-12-21 05:50] LABS: Bun/Creatinine Ratio 26.1 (12.0-20.0); Calcium, Blood 8.6 mg/dL (8.5-10.1); Creatinine, Blood 0.69 mg/dL (0.60-1.20); Potassium, Blood 3.7 mmol/L (3.5-5.5)
--- NOTE | 2021-12-21 17:32 | NUR ---
NO ACUTE CHANGES. PT IS AOX4 AND COOPERATIVE OF CARE. PT IS BEING TREATED FOR HIS L RIB PAIN PER EMAR. PT HAS NEEDED STRAIGHT CATHED X2 TODAY. PT CONTINUES TO HAVE MUSCLE CRAMPS AND IS TREATED PER EMAR. WILL CONTINUE TO MONITOR.
--- NOTE | 2021-12-22 05:49 | NUR ---
SHIFT SUMMARY; PATIENT HAD RESTFUL NIGHT AFTER RECEIVING TORADOL AND NORCO AT 2100. HE SLEPT COMFORTABLY UNTIL 0500 WHEN THIS RN DID BLADDER SCAN HIM AND NOTED >657 IN HIS BLADDER. PATIENT WAS STRAIGHT CATHED AND NOTED TO HAVE DRIED RED BLOOD AND A BLOOD CLOT IN END OF HIS PENIS. CALL TO HOSPITALIST AND ORDER TO LEAVE PHILLIP CATHETER IN TO PREVENT ADDITIONAL TRAUMA. PATIENT TOLERATED WELL AND IS NOW BACK TO SLEEP AFTER RECEIVING NORCO THIS AM FOR PAIN 8/10 ON HIS LEFT SIDE FROM HIS RIB FRACTURES. PER PATIENT HE IS CONCERNED THAT HE WILL NOT BE ABLE TO STRAIGHT CATH HIMSELF BECAUSE OF HIS RIB FRACTURES WHEN HE GOES HOME. WILL PASS ON TO DAY SHIFT RN PATIENTS CONCERNS. HIS VITAL SIGNS ARE B/P ELEVATED AT 160 SYSTOLIC THIS AM AND HIS HR 62 AND HE IS NOT FEBRILE. WILL REMAIN AVAILABLE FOR THIS PATIENT FOR ANY WANTS OR NEEDS UNTIL REPORT AND HAND OFF TO DAY SHIFT RN.
[2021-12-22 05:55] LABS: Source, Urine Foley catheter
[2021-12-22 06:03] LABS: Bilirubin, Urine Neg (Neg); Blood, Urine 2+ (Neg); Glucose Qualitative, Urine Neg (Neg); Ketones, Urine Neg (Neg); Leukocyte Esterase, Urine Neg (Neg); Nitrite, Urine Neg (Neg); Protein, Urine 1+ (Neg); Specific Gravity, Urine 1.015 (1.003-1.022); Urobilinogen, Urine 1+ (Normal)
[2021-12-22 06:12] LABS: Appearance, Urine Hazy (Clear); Color, Urine Yellow (P-Yellow)
[2021-12-22 06:18] LABS: Red Blood Cells, Urine 0-2 /hpf (0-2); Squamous Epithelial Cells Rare /hpf (Few); White Blood Cells, Urine 0-2 /hpf (0-5)
[2021-12-22 06:19] LABS: Bacteria Rare /hpf
--- NOTE | 2021-12-22 18:02 | NUR ---
PT AOX4 AND COOPERATIVE OF CARE. PT STILL HAS A LOT OF RIB PAIN WITH MUSCLE SPASMS AND HAS BEEN TREATED PER EMAR. PT WAS UP WITH 1 PERSON TO CHAIR TO EAT MEALS. PT HAS BEEN ENCOURAGE TO USE A SPIROMETER WELL. PT HAS CALL LIGHT WITHIN REACH, WILL CONTINUE TO MONITOR.
--- NOTE | 2021-12-23 00:24 | NUR ---
12/22/211954 PT LYING IN BED, REPORTS BACK PAIN AT 5/10 BUT IS RELUCTANT TO TAKE PAIN MEDS, GAVE ROBAXIN, WILL EVAL FOR EFFECT. PT REPORTS SOB WITH DEEP BREATHING, ON 1L NC AT 95%. PHILLIP, CLEAR AND YELLOW URINE. NO OTHER APPARENT SIGNS OF DISTRESS. CALL LIGHT IS IN REACH. BED ALARM IS ON.
--- NOTE | 2021-12-23 00:35 | NUR ---
12/22/212029 PT HAS A SMALL AMOUNT OF BRIGHT RED BLOOD COMING FROM HIS URETHRA AROUND THE PHILLIP BUT NOT IN THE CATHETER. PT WAS A STRAIGHT CATH BEFORE BUT THERE WAS BLEEDING EARLIER SO THEY PLACED A PHILLIP TO REDUCE FURTHER IRRITATION TO URETHRA. WILL CONTINUE TO MONITOR. NO OTHER APPARENT SIGNS OF DISTRESS. CALL LIGHT IS IN REACH. BED ALARM IS ON.
--- NOTE | 2021-12-23 01:34 | NUR ---
0000 PT LYING IN BED, EYES CLOSED, APPEARS TO BE RESTING. BREATHING IS EVEN, UNLABORED. NO APPARENT SIGNS OF DISTRESS. CALL LIGHT IS IN REACH. BED ALARM IS ON.
--- NOTE | 2021-12-23 03:24 | NUR ---
PT REQUESTED AND RECIEVED PAIN MEDS FOR HEAD AND BACK PAIN FOR 5/10, THE PAIN IS NOW 4/10. NO OTHER APPARENT SIGNS OF DISTRESS. CALL LIGHT IS IN REACH.
--- NOTE | 2021-12-23 03:28 | NUR ---
PT IS AAO X 4, REPORTS SOB WITH DEEP BREATHING. ON 1L NC O2 AT 95%. REPORTED BACK PAIN AND MUSCLE SPASMS. GOT ROBAXIN AND NORCO. HAD SOME BLEEDING AROUND CATHETER, BRIGHT RED, SMALL AMOUNT, NONE IN CATHETER, URINE IS CLEAR YELLOW.
--- NOTE | 2021-12-23 05:44 | NUR ---
PT LYING IN BED, EYES CLOSED, APPEARS TO BE RESTING. BREATHING IS EVEN, UNLABORED. NO APPARENT SIGNS OF DISTRESS. CALL LIGHT IS IN REACH. BED ALARM IS ON. NO OTHER CHANGES THIS SHIFT.
[2021-12-23] MEDS ORDERED: RANO500T PO (09:02)
--- NOTE | 2021-12-23 17:48 | NUR ---
PT AXO, PLEASANT AND COOPERATIVE WITH CARE THOUGH SLOW TO RECALL WHEN ASKED SOME QUESTIONS. PT ABLE TO RECALL ALL MEDICATIONS AND DOSAGES WITH NURSE. PT REFUSED MORNING DOSE OF FLEXERIL THOUGH STATES THIS AFTERNOON THAT HE IS WILLING TO TAKE IT. MEDICATED FOR PAIN PER EMAR. ROBAXIN X1 THIS SHIFT. 95-97% ON 1L THIS SHIFT, ATTEMPTING TO WEEN AT THIS TIME, PT ON RA. VSS. PT SOB WITH EXERTION. UP TO BATHROOM WITH 1 ASSIST WITH FWW, REFUSED GB. BM X1 THIS SHIFT, STOOL SOFTENERS HELD PER PT REQUEST AND CLINICAL JUDGEMENT R/T PT LOOSE STOOL. IV PATENT AND SALINE LOCKED. BED IN LOW POSITION, CALL LIGHT WITHIN REACH.
--- NOTE | 2021-12-23 18:11 | NUR ---
PT O2 CHECKED WHILE PATIENT WAS TRAILED ON RA. PT SATS WERE 91-92. PT PLACED BACK ON 1L AT THIS TIME.
--- NOTE | 2021-12-24 00:12 | NUR ---
PT AWAKE AT START OF SHIFT. PLEASANT AND CO-OP. REPOSITIONED FOR HS AND REQUESTED MEDICATION TO HELP HIM SLEEP; GIVEN PER EMAR. PT WAS ON 1L O2 WITH BIOX AT 98%. PT NOW ON BASELINE RA, WNL'S. PT C/O O2 TUBING CAUSING HIM TO SNEEZE AND RESULTING IN PAIN TO RIBS. MEDS TAKEN WHOLE W/H2O W/O DIFFICULTY. PHILLIP TO GRAVITY; PATENT AND DRAINING CL YELLOW URINE. LUNGS T/O WITH SCATTERED EXP WHEEZES. PT DENIED FURTHER NEEDS AT THIS TIME. CALL LT IN REACH.
--- NOTE | 2021-12-24 00:14 | NUR ---
GOT REPORT FROM HAZEL SUERO, WILL BE TAKING OVER CARE OF THIS PT AT 0100.
--- NOTE | 2021-12-24 07:58 | NUR ---
SEE DOWNTIME CHARTING FOR NOTES FOR 12/24/21 AFTER 0045 UP TO 0600
--- NOTE | 2021-12-24 17:41 | NUR ---
SHIFT SUMMARY: NO ACUTE EVENTS. C/O 4-09/26 PAIN IN L RIBCAGE AND LOW BACK; MEDICATED PER EMAR WITH ADEQUATE RELIEF. IS USING INCENTIVE SPIROMETER WITH ENCOURAGEMENT, EDUCATED TO SPLINT WHEN COUGHING. AMBULATED IN ROOM WITH SBA AND FWW, GAIT STEADY, IS FEARFUL OF FALLING. PHILLIP DRAINING ADEQUATE URINE. TOLERATING PO INTAKE. HAD VISIT FROM HIS SON THIS AFTERNOON. WORKED WITH PT/OT.
--- NOTE | 2021-12-25 05:17 | NUR ---
PT A&O X4, PAINFUL WITH ANGINA AND GENERALIZED CHEST WALL PAIN AROUND AREA OF BROKEN RIBS, NEEDING NORCO AND NITRO DURING SHIFT, TROUBLE SLEEPING NEEDED PRN MELATONIN, PHILLIP PATENT AND DRAINING, BM 12/24.
[2021-12-25 06:29] LABS: BASOPHILS ABSOLUTE AUTO 0.02 K/mm3 (0.00-0.23); BASOPHILS PERCENT AUTO 0 % (0-2); EOSINOPHILS ABSOLUTE AUTO 0.06 K/mm3 (0.00-0.68); EOSINOPHILS PERCENT AUTO 1 % (0-6); Hematocrit 35.9 % (37.0-53.0); Hemoglobin 12.3 g/dL (13.5-17.5); IMMATURE GRAN ABSOLUTE AUTO 0.04 K/mm3 (0.00-0.10); IMMATURE GRAN PERCENT AUTO 1 % (0-1); LYMPHOCYTES ABSOLUTE AUTO 0.87 K/mm3 (0.84-5.20); LYMPHOCYTES PERCENT AUTO 10 % (21-46); MONOCYTES ABSOLUTE AUTO 0.71 K/mm3 (0.16-1.47); MONOCYTES PERCENT AUTO 9 % (4-13); Mean Corpuscular HGB 32.5 pg (26.0-34.0); Mean Corpuscular HGB Conc 34.3 g/dL (31.5-36.5); Mean Corpuscular Volume 95 fL (80-100); Mean Platelet Volume 10.2 fL (9.1-12.4); NEUTROPHILS ABSOLUTE AUTO 6.67 K/mm3 (1.96-9.15); NEUTROPHILS PERCENT AUTO 80 % (41-73); Platelet Count 192 K/mm3 (150-400); RDW Coefficient Variation 11.9 % (11.7-14.2); RDW Standard Deviation 41.1 fL (35.1-46.3); Red Blood Cell Count 3.79 M/mm3 (4.30-5.90); White Blood Cell Count 8.37 K/mm3 (4.00-11.30)
[2021-12-25 07:00] LABS: Albumin, Blood 2.8 g/dL (3.4-5.0); Anion Gap 5 mmol/L (6-16); Blood Urea Nitrogen 18 mg/dL (8-24); Bun/Creatinine Ratio 21.8 (12.0-20.0); CO2, Blood 27 mmol/L (21-32); Calcium, Blood 8.7 mg/dL (8.5-10.1); Chloride, Blood 111 mmol/L (98-108); Creatinine, Blood 0.83 mg/dL (0.60-1.20); Glomerular Filtration Rate 86 (60-); Glucose, Blood 119 mg/dL (70-99); Phosphorus, Blood 3.5 mg/dL (2.5-4.9); Potassium, Blood 4.2 mmol/L (3.5-5.5); Sodium, Blood 143 mmol/L (136-145)
--- NOTE | 2021-12-26 04:34 | NUR ---
PATIENT STILL PAINFUL WITH ANY MOVEMENT, HAS TOWEL AND PILLOW TO SPLINT RIBS, CONTINUES TO USE IS ACHIEVING APPROX 1500 CONTINUED TO ENCOURAGE FREQUENT CONTIUED USE, TYLENOL PM GIVEN TO HELP PATIENT SLEEP, PRN PAINS MEDS NEEDED FOR RIB/CHEST WALL PAIN
--- NOTE | 2021-12-26 10:44 | NUR ---
Pt. is awake in bed and welcomes my visit. Pt. is pleasant. This chapain was the eli for Pts. before she passed. Through theraputic listening and pastoral care Pt. displays evidence of grieving but is also somewhat at peace. 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 Establish rapport. Pt. verbalizes he is looking forward to clearing out of isolation and being assigned a SNF for further recovery. Pt. verbalized gratitude for the spiritual care visit, and welcomed my return.
--- NOTE | 2021-12-26 18:31 | NUR ---
SHIFT SUMMARY A&O X 4. VSS. PT REMAINS IN COVID ISOLATION. HIS 10 DAYS ARE UP ON THE . HE CONTINUES TO USE A FOLDED TOWEL TO SPLINT HIS L RIBS AND A PILLOW SET BESIDE HIS R ARM AND SHOULDER WELL. MEDICATED FOR PAIN (SEE EMAR) A COUPLE OF TIMES TODAY WITH GOOD RESULTS. HIS F/C IS INTACT & PATENT AT GRAVITY DRAINAGE. HE DID NOT VERBALIZE NEED FOR NITRO TODAY. HE DID SIT UP IN THE CHAIR A FEW TIMES TODAY THOUGH FOR SHORT PERIODS OF TIME. HE IS PLEASANT & COOPERATIVE. PLAN IS FOR SNF PLACEMENT UPON DC.
--- NOTE | 2021-12-27 05:47 | NUR ---
SHIFT SUMMARY 86 YR M ADMITTED ON 12/20/21 FOR 3 RIB FX ON LEFT SIDE. DNR. NO ACUTE CHANGES THIS SHIFT. PT STATES THE PAIN IS STILL THERE BUT IT IS GETTING BETTER. HE HAS SLEPT FOR MOST OF THIS SHIFT SO [facility] NURSE HAS HAD VERY LITTLE INTERACTION WITH HIM. HE IS VERY PLEASANY AND COOPERATIVE AND IS A&O X4.
--- NOTE | 2021-12-27 18:29 | NUR ---
SHIFT SUMMARY: NO ACUTE EVENTS. C/O ANGINAL PAIN THIS MORNING, MEDICATED WITH NTG X 1 WITH COMPLETE RELIEF. HAVING PAIN IN LEFT RIBS AND LOW BACK; MEDICATED PER EMAR WITH PARTIAL RELIEF. PHILLIP DRAINING ADEQUATE URINE. ENHANCED ISOLATION FOR COVID. WAS UP IN CHAIR FOR MEALS. ALERT, PLEASANT, AND COOPERATIVE.
--- NOTE | 2021-12-28 05:10 | NUR ---
SHIFT SUMMARY 86 YR M ADMITTED ON 12/20/21 FOR LEFT RIB FX'S. DNR. PT STILL C/O PAIN IN THE RIGHT SIDE, ESPECIALLY WHEN HE COUGHS. HE STATES THAT PAIM MEDS PER EMAR DO HELP THE PAIN. HE HAS HAD NO C/O CHEST PAIN THIS SHIFT, AND HAS SLEPT FOR MOST OF THE SHIFT. PHILLIP IS DRAINING TO GRAVITY AND PT IS STILL ON ENHANCED PRECAUTIONS DUE TO A POSITIVE COVID TEST ON 12/20/21. HE IS ALERT, PLEASANT, AND COOPERATIVE.
--- NOTE | 2021-12-28 16:21 | NUR ---
SHIFT SUMMARY PT IS A&OX4, PLEASANT & COOPERATIVE WITH CARE. IND-SBA/UP TO CHAIR/REPOSITIONS SELF IN BED. PHILLIP PATENT & DRAINING YELLOW URINE, STAT LOCK ON, OFF FLOOR. LUKE PO. PAIN MANAGED WELL WITH NORCO 5 MG Q4, AND ROBAXIN GIVEN X1. INCENTIVE SPIROMETER USED BY PT T/O SHIFT. WILL REPORT TO ONCOMING CHLOE RN.
--- NOTE | 2021-12-29 03:46 | NUR ---
SHIFT SUMMARY NO ACUTE CHANGES THIS SHIFT. AOX3. VSS. REPORTS 4/10 CHRONIC PAIN IN BACK & ACUTE PAIN L SIDE RIB FX, MEDICATED 1X c NORCO & MEDICATED c 50MG TYLENOL PM. PT RESTED SOUNDLY T/O NIGHT. REPORTS DYSPNEA, MORE c EXERTION, SPO2 >92% ON RA. LS DIM c FINE CRACKLES IN BASES. E/U RESP. PHILLIP PATENT & DRAINING CLEAR YELLOW URINE. CALL LIGHT IN REACH & PT ABLE TO MAKE NEEDS KNOWN.
--- NOTE | 2021-12-29 19:49 | NUR ---
SHIFT SUMMARY PT A&O X 4. VSS. MEDICATED FOR PAIN PER EMAR. HE WILL NO LONGER NEED TO BE IN COVID ISO TOMORROW. PLAN IS FOR SNF PLACEMENT UPON DC.
--- NOTE | 2021-12-30 04:54 | NUR ---
SHIFT SUMMARY - PT AOX3, NO ACUTE CHANGES T/O SHIFT. PT COVID ISOLATION ENDED AT MIDNIGHT PER PROTOCOL AND DR. PASTOR'S PROGRESS NOTE FROM 12/29. PT DID C/O OF BACK PAIN AND RIB PAIN, BUT NOT ENOUGH TO REQUEST ADDITIONAL PAIN PILLS BEYOND HIS TYLENOL PM. PT SLEPT WELL T/O THE NIGHT. NO C/O OF CHEST PAIN OR PRESSURE T/O SHIFT.
--- NOTE | 2021-12-30 19:14 | NUR ---
SHIFT SUMMARY PT A&O X 4. VSS. PT MEDICATED FOR PAIN PER EMAR. L RIBS ARE QUITE PAINFUL FOR HIM. HE USES A FOLDED TOWEL FOR A SPLINT WHEN HE GETS OOB. HE SITS UP IN CHAIR FOR MEALS AND TO THE RESTROOM FOR BM's. F/C INTACT & PATENT. PLAN IS FOR TRANSFER TO [place] UPON DC, LIKELY TOMORROW.
--- NOTE | 2021-12-31 06:23 | NUR ---
GEOTHERMAL POWERPLANT MECHANIC HELPER SUMMARY PT REPORTING LEFT RIB PAIN. HE HAS BEEN USING A TOWEL TO SPLINT THE LEFT SIDE WHEN LAUGHING OR COUGHING TO HELP WITH PAIN. PT WITH SHALLOW RESPIRATIONS R/T PAIN. MEDICATED X1 WITH TYLENOL AND PT HAS BEEN SLEEPING SINCE. DID NOT REQUEST PAIN MEDICATION AFTER FALLING ASLEEP. HE IS A SBA WITH FWW TO THE BR. HE DID HAVE A BM LAST NIGHT THAT WAS LOOSER. ALERT AND ORIENTED X4, PLEASANT WITH STAFF. NO ACUTE CONCERNS THIS SHIFT.
--- NOTE | 2021-12-31 12:09 | NUR ---
Pt. is sitting up on the side of his bed and welcomes my visit. Pt. is pleasant and verbalizes that he has no real concerns. Pt. is anticipating continued physical therapy and [facility] Re-establish rapport. This echocardiograph tech was the echocardiograph tech for the pts. who passed earlier in the summer. Pt. displays evidence of a clear mind and being a motivated and informed Pt. [place] with Pt. Pt. verbalizes gratitude for the spiritual care visit.
[2021-12-31 12:17] LABS: SARS-Cov-2 (COVID-19) PCR, MMC NEGATIVE (NEGATIVE)
--- NOTE | 2022-01-01 04:22 | NUR ---
SHIFT SUMMARY: PT IS ALERT AND ORIENTED. PT IS CALM AND COOPERATIVE WITH CARE. PT IS A STANDBY ASSIST WITH FWW. PT CALLSA APPROPRIATELY. PT HYPOTENSIVE DURING THE DAY AND BORDERLINE @ THE START OF PAY STATION DEPARTMENT MANAGER, HELD METOPROLOL PER CLINICAL JUDGEMENT. PT DENIES PAIN, NAUSEA, VOMITING, AND SOB. PT SLEPT MUCH OF THE NIGHT WHEN NOT DISTURBED. NO ACUTE CHANGES OR COMPLICATIONS THIS SHIFT. BED IN LOW POSITION, CALL LIGHT WITHIN REACH. WILL CONTINUE TO MONITOR.
[2022-01-01 04:45] LABS: Hematocrit 34.7 % (37.0-53.0); Hemoglobin 11.7 g/dL (13.5-17.5); Mean Corpuscular HGB 32.3 pg (26.0-34.0); Mean Corpuscular HGB Conc 33.7 g/dL (31.5-36.5); Mean Corpuscular Volume 96 fL (80-100); Mean Platelet Volume 10.4 fL (9.1-12.4); Platelet Count 237 K/mm3 (150-400); RDW Coefficient Variation 12.1 % (11.7-14.2); RDW Standard Deviation 43.1 fL (35.1-46.3); Red Blood Cell Count 3.62 M/mm3 (4.30-5.90); White Blood Cell Count 8.87 K/mm3 (4.00-11.30)
[2022-01-01 05:12] LABS: Albumin, Blood 2.9 g/dL (3.4-5.0); Bilirubin, Total 0.5 mg/dL (0.1-1.0); Bun/Creatinine Ratio 33.9 (12.0-20.0); Calcium, Blood 8.6 mg/dL (8.5-10.1); Creatinine, Blood 1.18 mg/dL (0.60-1.20); Globulin, Blood 2.8 g/dL (2.2-4.0); Potassium, Blood 4.4 mmol/L (3.5-5.5); Total Protein, Blood 5.7 g/dL (6.4-8.2)
[2022-01-01 13:40] LABS: Influenza A, PCR NEGATIVE (NEGATIVE); Influenza B, PCR NEGATIVE (NEGATIVE); Resp Syncytial Virus, PCR NEGATIVE (NEGATIVE); SARS-Cov-2 (COVID-19) PCR, MMC NEGATIVE (NEGATIVE)
[2022-01-01] MEDS ORDERED: CLOP75 PO (15:17)
--- NOTE | 2022-01-01 15:56 | NUR ---
DISCHARGE SUMMARY PT WAS DISCHARGED TO SNF AT 1600 . FACE SHEET, DISCHARGE PAPERWORK AND HARD SCRIP GIVEN TO TRANSPORTER. IV DC'S AND KENJI DC'D AT 1300.
== END 2022-01-01 15:49 ==
LOC: ER 06:20 → MEDS 11:12
PROVIDERS: Family Medicine; Internal Medicine; Student in an Organized Health Care Education/Training Program; ADMIT Internal Medicine
DX: S22.42XA Multiple fractures of ribs, left side, initial encounter for closed fracture (principal); I10 Essential (primary) hypertension; E78.5 Hyperlipidemia, unspecified; F32.A Depression, unspecified; U07.1 COVID-19; I25.10 Atherosclerotic heart disease of native coronary artery without angina pectoris; G62.9 Polyneuropathy, unspecified; N40.0 Benign prostatic hyperplasia without lower urinary tract symptoms; G47.00 Insomnia, unspecified; Z95.1 Presence of aortocoronary bypass graft; Z87.891 Personal history of nicotine dependence; Z79.82 Long term (current) use of aspirin; Z95.5 Presence of coronary angioplasty implant and graft; Z88.8 Allergy status to other drugs, medicaments and biological substances; W01.0XXA Fall on same level from slipping, tripping and stumbling without subsequent striking against object, initial encounter
CPT/HCPCS: 0241U; 36415; 51702; 71046; 80048; 80053; 80069; 81001; 85025; 85027; 93005; 93010; 94760; 96372; 96372-59; 96374; 97110; 97116; 97161; 97166; 97530; 97535; 99285-25; A9270; G0378; J1650; J1885; J2270; J7040; U0004

== ENCOUNTER 2022-02-01 12:42 | Inpatient (IN) | payer OTHER ==
[~2022-02-01] VITALS: Ht 177.8 cm; Wt 87.0 kg
[~2022-02-01 12:42] MED LIST changes: +RANO500T PO
[2022-02-01 13:17] LABS: BASOPHILS PERCENT AUTO 0 % (0-2); EOSINOPHILS ABSOLUTE AUTO 0.01 K/mm3 (0.00-0.68); EOSINOPHILS PERCENT AUTO 0 % (0-6); Hematocrit 32.1 % (37.0-53.0); IMMATURE GRAN ABSOLUTE AUTO 0.04 K/mm3 (0.00-0.10); IMMATURE GRAN PERCENT AUTO 0 % (0-1); LYMPHOCYTES ABSOLUTE AUTO 0.61 K/mm3 (0.84-5.20); LYMPHOCYTES PERCENT AUTO 6 % (21-46); MONOCYTES ABSOLUTE AUTO 0.87 K/mm3 (0.16-1.47); MONOCYTES PERCENT AUTO 9 % (4-13); Mean Corpuscular HGB Conc 34.3 g/dL (31.5-36.5); Mean Corpuscular Volume 96 fL (80-100); Mean Platelet Volume 10.4 fL (9.1-12.4); NEUTROPHILS ABSOLUTE AUTO 8.01 K/mm3 (1.96-9.15); NEUTROPHILS PERCENT AUTO 84 % (41-73); Platelet Count 208 K/mm3 (150-400); RDW Coefficient Variation 13.2 % (11.7-14.2); RDW Standard Deviation 46.4 fL (35.1-46.3); Red Blood Cell Count 3.33 M/mm3 (4.30-5.90); White Blood Cell Count 9.54 K/mm3 (4.00-11.30)
[2022-02-01 13:28] LABS: Albumin/Globulin Ratio 1.1 (0.8-1.8); Bilirubin, Total 0.4 mg/dL (0.1-1.0); Bun/Creatinine Ratio 22.9 (12.0-20.0); Calcium, Blood 8.5 mg/dL (8.5-10.1); Creatinine, Blood 0.83 mg/dL (0.60-1.20); Globulin, Blood 2.7 g/dL (2.2-4.0); Potassium, Blood 4.1 mmol/L (3.5-5.5); Total Protein, Blood 5.7 g/dL (6.4-8.2)
--- NOTE | 2022-02-01 18:39 | NUR ---
PT ADMITTED TO ROOM. DID SHORT ADMIT. PT H/R REG, NO MURMUR NOTED. PER TELE JUST PLACED, NSR AT 64 WITH 1'BLOCK. LUNGS CLEAR UPPER, LOWER HAS LIGHT CRACKLES. RESP EASY, UNLABORED. ON 4L O2. PT STATES NORMALLY ON R/A. VOIDS URINAL. URINAL PLACED AT BEDSIDE. PT STATES NORMALLY AMBULATES AT HOME ALONE WITH FWW. STATES MORE SOB RECENTLY. ANKLE TO FOOT BLE +2. STATES NORMAL IS BACK PAIN. PRESENTLY OKAY. BED IN LOW POSITION, CALL LITE IN REACH, CALLS APPROP. DID ASK PT TO GET HELP ON FIRST TIME TO BATHROOM TO EVAL ABILITIES. PT AGREES.
--- NOTE | 2022-02-02 04:33 | NUR ---
SUMMARY: PATIENT DID WELL OVERNIGHT. PATIENT WAS RUNNING SR TO SB ON TELE. NO ACUTE EVENTS OVERNIGHT. VSS. PATIENT AMBULATED TO RESTROOM FOR A SMALL BM BEFORE BED. PLACED PATIENT BED ALARM ON. EDUCATED HIM TO CALL STAFF WHEN HE WOULD LIKE TO GET UP. CRACKLES HEARD IN BASES OF LUNGS WORSE ON LEFT SIDE. PATIENT O2 STABLE ON 4L NC. HOSPITAL SOCKS PLACED ON PATIENT FEET FOR SAFETY. EDUCATED PATIENT TO VOID IN URINAL SO WE COULD HAVE ACURATE OUTPUT MEASUREMENTS.
[2022-02-02 05:42] LABS: Bun/Creatinine Ratio 21.3 (12.0-20.0); Creatinine, Blood 0.75 mg/dL (0.60-1.20)
--- NOTE | 2022-02-02 18:25 | NUR ---
PATINET A/OX4 UP WITH FWW AND SBA TO RESTROOM TODAY. VSS, WEANED DOWN FROM 4LO2 NC TO RA. LUNGS WITH FINE CRACKLES IN BASES. TOLERATING ADA DIET. 1-2+ EDEMA TO BLE/ IV LASIX GIVEN X2 THIS SHIFT. NORCO GIVEN X1 TO TREAT CHRONIC BACK PAIN WITH STATED RELIEF. PATIENT VERY PLEASANT AND COOPERATIVE WITH CARE. USING CALL LIGHT APPROPRIATELY FOR ASSISTANCE. NO NEW CONCERNS THIS SHIFT.
--- NOTE | 2022-02-03 05:08 | NUR ---
Summary: Patient did well over night. VSS. No acute events. Patient is ambulating in room independently. Lung sounds with fine crackles slightly improved from yesterday. Patient o2 stable on room air. seismograph shooter in place sinus rhythm to sinus christiana. Mild lower extremity edema worse on right leg.
[2022-02-03 05:15] LABS: Hematocrit 31.7 % (37.0-53.0); Hemoglobin 10.6 g/dL (13.5-17.5); Mean Corpuscular HGB 32.1 pg (26.0-34.0); Mean Corpuscular HGB Conc 33.4 g/dL (31.5-36.5); Mean Corpuscular Volume 96 fL (80-100); Mean Platelet Volume 10.4 fL (9.1-12.4); Platelet Count 206 K/mm3 (150-400); RDW Coefficient Variation 12.8 % (11.7-14.2); RDW Standard Deviation 45.1 fL (35.1-46.3); White Blood Cell Count 6.63 K/mm3 (4.00-11.30)
[2022-02-03 05:27] LABS: Albumin, Blood 2.8 g/dL (3.4-5.0); Anion Gap 6 mmol/L (6-16); Blood Urea Nitrogen 23 mg/dL (8-24); Bun/Creatinine Ratio 27.2 (12.0-20.0); CO2, Blood 26 mmol/L (21-32); Calcium, Blood 8.5 mg/dL (8.5-10.1); Chloride, Blood 111 mmol/L (98-108); Creatinine, Blood 0.85 mg/dL (0.60-1.20); Glomerular Filtration Rate 85 (60-); Glucose, Blood 90 mg/dL (70-99); Phosphorus, Blood 3.1 mg/dL (2.5-4.9); Potassium, Blood 3.7 mmol/L (3.5-5.5); Sodium, Blood 143 mmol/L (136-145)
--- NOTE | 2022-02-03 18:19 | NUR ---
PATIENT A/OX4, UP INDEPENDENTLY IN ROOM. MAINTAINING SATS ON RA. LASIX GIVEN X2 TODAY WITH GOOD OUTPUT. NORCO GIVEN X2 FOR BACK AND L FLANK PAIN. VITAL SIGNS STABLE. SB WITH A FIRST DEGREE HEART BLOCK IN THE 50'S. NO ACUTE CHANGES THIS SHIFT.
--- NOTE | 2022-02-04 04:38 | NUR ---
SHIFT SUMMARY; PT RESTED IN BED ALL NIGHT. PT IS AXO X4, INDEPENDENT IN THE ROOM AND USES THE URINAL APPROPRIATLEY. PT KIND TO STAFF AND COOPERATIVE WITH CARE. NO ACUTE CHANGES THROUGHOUT THE NIGHT. PT HAS TELE ON, SINUS KWABENA AT 56 WITH A 1ST DEGREE BLOCK, BASELINE FOR PT. PT CURRENTLY SLEEPING WITH CALL LIGHT IN HAND, BED IN THE LOWEST POSITION. PT ANTICIPATED TO DC TOMORROW AFTER ECHO READ.
[2022-02-04 06:12] LABS: Albumin, Blood 2.9 g/dL (3.4-5.0); Anion Gap 8 mmol/L (6-16); Blood Urea Nitrogen 20 mg/dL (8-24); Bun/Creatinine Ratio 23.6 (12.0-20.0); CO2, Blood 25 mmol/L (21-32); Calcium, Blood 8.5 mg/dL (8.5-10.1); Chloride, Blood 109 mmol/L (98-108); Creatinine, Blood 0.85 mg/dL (0.60-1.20); Glomerular Filtration Rate 85 (60-); Glucose, Blood 86 mg/dL (70-99); Phosphorus, Blood 3.5 mg/dL (2.5-4.9); Potassium, Blood 3.8 mmol/L (3.5-5.5); Sodium, Blood 142 mmol/L (136-145)
[2022-02-04] MEDS ORDERED: FURO40 PO (11:43)
[2022-02-04] MEDS ORDERED: MELATONIN 5 MG1 EACH PO (11:43)
--- NOTE | 2022-02-04 14:46 | NUR ---
PATIENT D/C'D TO HOME WITH HOME HEALTH. DC INSTRUCTIONS AND EDUCATION DISCUSSED WITH PATIENT AND COPY PROVIDED. PATIENT DENIES ANY FURTHER QUESTIONS OR CONCERNS. [facility]
== END 2022-02-04 14:48 | disposition home health service (06) | DRG 291 ==
LOC: ER 12:42 → MEDS 15:26
PROVIDERS: Emergency Medicine; Internal Medicine; ADMIT Internal Medicine
DX: I11.0 Hypertensive heart disease with heart failure (principal); I50.33 Acute on chronic diastolic (congestive) heart failure; J96.01 Acute respiratory failure with hypoxia; Z66 Do not resuscitate; E78.5 Hyperlipidemia, unspecified; M19.90 Unspecified osteoarthritis, unspecified site; F32.A Depression, unspecified; I25.10 Atherosclerotic heart disease of native coronary artery without angina pectoris; K21.9 Gastro-esophageal reflux disease without esophagitis; M48.00 Spinal stenosis, site unspecified; G62.9 Polyneuropathy, unspecified; I34.0 Nonrheumatic mitral (valve) insufficiency; Z88.8 Allergy status to other drugs, medicaments and biological substances; Z79.82 Long term (current) use of aspirin; Z79.899 Other long term (current) drug therapy; I25.2 Old myocardial infarction; Z87.891 Personal history of nicotine dependence; Z95.1 Presence of aortocoronary bypass graft; Z98.890 Other specified postprocedural states; Z79.02 Long term (current) use of antithrombotics/antiplatelets
CPT/HCPCS: 36415; 71046; 80048; 80053; 80069; 83880; 84145; 84484; 85025; 85027; 93005; 93010; 93306; 94760; 96374; 98960; 99285-25; A9270; J1650; J1940

== ENCOUNTER 2022-08-31 09:57 | Inpatient (IN) | payer OTHER ==
[~2022-08-31] VITALS: Ht 177.8 cm; Wt 77.2 kg
[~2022-08-31 09:57] MED LIST changes: +FURO40 PO; +MELATONIN 5 MG1 EACH PO
[2022-08-31 10:51] LABS: BASOPHILS ABSOLUTE AUTO 0.02 K/mm3 (0.00-0.23); BASOPHILS PERCENT AUTO 0 % (0-2); EOSINOPHILS PERCENT AUTO 0 % (0-6); Hematocrit 39.3 % (37.0-53.0); Hemoglobin 13.7 g/dL (13.5-17.5); IMMATURE GRAN ABSOLUTE AUTO 0.14 K/mm3 (0.00-0.10); IMMATURE GRAN PERCENT AUTO 1 % (0-1); LYMPHOCYTES ABSOLUTE AUTO 0.42 K/mm3 (0.84-5.20); LYMPHOCYTES PERCENT AUTO 2 % (21-46); MONOCYTES ABSOLUTE AUTO 1.11 K/mm3 (0.16-1.47); MONOCYTES PERCENT AUTO 6 % (4-13); Mean Corpuscular HGB 33.5 pg (26.0-34.0); Mean Corpuscular HGB Conc 34.9 g/dL (31.5-36.5); Mean Corpuscular Volume 96 fL (80-100); Mean Platelet Volume 11.2 fL (9.1-12.4); NEUTROPHILS ABSOLUTE AUTO 16.49 K/mm3 (1.96-9.15); NEUTROPHILS PERCENT AUTO 91 % (41-73); Platelet Count 180 K/mm3 (150-400); RDW Coefficient Variation 11.4 % (11.7-14.2); RDW Standard Deviation 40.4 fL (35.1-46.3); Red Blood Cell Count 4.09 M/mm3 (4.30-5.90); White Blood Cell Count 18.18 K/mm3 (4.00-11.30)
[2022-08-31 11:04] LABS: Source, Urine Foley catheter
[2022-08-31 11:11] LABS: Appearance, Urine Hazy (Clear); Bilirubin, Urine Neg (Neg); Blood, Urine 5+ (Neg); Color, Urine Yellow (P-Yellow); Glucose Qualitative, Urine Neg (Neg); Ketones, Urine 2+ (Neg); Leukocyte Esterase, Urine 1+ (Neg); Nitrite, Urine Neg (Neg); Protein, Urine 2+ (Neg); Urobilinogen, Urine NORM (Normal)
[2022-08-31 11:23] LABS: Creatine Kinase MB 18.8 ng/mL (0.0-3.6)
[2022-08-31 11:29] LABS: Albumin, Blood 3.5 g/dL (3.4-5.0); Albumin/Globulin Ratio 1.2 (0.8-1.8); Bilirubin, Total 0.9 mg/dL (0.1-1.0); Calcium, Blood 9.1 mg/dL (8.5-10.1); Creatine Kinase MB Index 0.3 (0.0-4.0); Globulin, Blood 2.9 g/dL (2.2-4.0); Potassium, Blood 4.3 mmol/L (3.5-5.5); Total Protein, Blood 6.4 g/dL (6.4-8.2)
[2022-08-31 11:35] LABS: Bacteria Mod /hpf; Squamous Epithelial Cells Not Seen /hpf (Few)
[2022-08-31 13:37] VITALS: BP 168/67
[2022-08-31 15:09] VITALS: BP 170/65
--- NOTE | 2022-08-31 17:47 | NUR ---
END OF SHIFT SUMMARY PT TRANSFERED FROM ED. A/O TO SELF ONLY. CONFUSED WITH HALLUCINATIONS, EASY TO REDIRECT. PT NOT ABLE TO GIVE FULL HISTORY OR PROCESS THE SITUATION DUE TO CONFUSION. ROOM AIR, ON TELE. RHYTHM WAS AT A RATE OF 70S WITH FIRST DEGREE AV BLOCK. CHANGE IN RHYTHM TO ATRIAL FIB. NOTIED DR DAVIS AND SHE REQUESTED AN EKG. PT COMPLAINS OF HEADACHE, TREATED PER JUN. PT UP TO BEDSIDE COMMODE NUMEROUS TIMES WITH LARGE FORMED BOWEL MOVEMENTS. REQUIRES 1X ASSIST DUE TO WEAKNESS. CULTURES DRAWN TO DX UTI BACTERIA. ROCEPHIN GIVEN IN ED, CURRENTLY RUNNING LR AT 125 ML/HR. BED ALARM ON, BED IN LOWEST POSITION
[2022-08-31 19:13] VITALS: BP 171/54
[2022-09-01 03:40] VITALS: BP 164/61
--- NOTE | 2022-09-01 04:41 | NUR ---
TRANSFER NOTE PT TRANSFERED TO ROOM 350. PT ORIENTED TO ROOM. HANDOFF RECEIVED FROM SAVANNAH GILLESPIE. CALL BUTTON WITHIN REACH. TELEMETRY IN PLACE. IV FLUIDS INFUSING ORDERED.
--- NOTE | 2022-09-01 05:04 | NUR ---
SHIFT SUMMARY ADMITTED FOR RHABDO AND UTI. FULL CODE. IV ANTIB RX ARE SCHEDULED. IV FLUIDS INFUSING. MX LABS. 2 ASSIST TO BSC. PHILLIP IN PLACE FOR RETENTION. CARDIAC DIET. WAS LIVING AT HOME ALONE W/CAREGIVER VISITING. TELEMETRY: NSR @ 67 BPM W/1ST DEGREE AV BLOCK. NEWER ONSET OF AFLUTTER REPORTED SINCE ADMIT. HX OF FALLS, DEMENTIA, CAD, STRAIGHT CATH'S AT HOME.
--- NOTE | 2022-09-01 06:38 | NUR ---
CALLED HOSPITALIST REPORTED 6 BEAT RUN OF VTACH. ADVISED TO CONTINUE TO MONITOR. NO S/SX REPORTED OR OBSERVED
[2022-09-01 07:28] VITALS: BP 173/64
[2022-09-01 09:42] LABS: BASOPHILS ABSOLUTE AUTO 0.01 K/mm3 (0.00-0.23); BASOPHILS PERCENT AUTO 0 % (0-2); EOSINOPHILS ABSOLUTE AUTO 0.01 K/mm3 (0.00-0.68); EOSINOPHILS PERCENT AUTO 0 % (0-6); Hematocrit 35.3 % (37.0-53.0); Hemoglobin 12.4 g/dL (13.5-17.5); IMMATURE GRAN ABSOLUTE AUTO 0.14 K/mm3 (0.00-0.10); IMMATURE GRAN PERCENT AUTO 1 % (0-1); LYMPHOCYTES ABSOLUTE AUTO 0.46 K/mm3 (0.84-5.20); LYMPHOCYTES PERCENT AUTO 4 % (21-46); MONOCYTES PERCENT AUTO 5 % (4-13); Mean Corpuscular HGB Conc 35.1 g/dL (31.5-36.5); Mean Corpuscular Volume 94 fL (80-100); Mean Platelet Volume 10.9 fL (9.1-12.4); NEUTROPHILS ABSOLUTE AUTO 11.87 K/mm3 (1.96-9.15); NEUTROPHILS PERCENT AUTO 90 % (41-73); Platelet Count 166 K/mm3 (150-400); RDW Coefficient Variation 11.5 % (11.7-14.2); RDW Standard Deviation 39.7 fL (35.1-46.3); Red Blood Cell Count 3.76 M/mm3 (4.30-5.90); White Blood Cell Count 13.19 K/mm3 (4.00-11.30)
[2022-09-01 10:07] LABS: Bun/Creatinine Ratio 29.3 (12.0-20.0); Calcium, Blood 8.6 mg/dL (8.5-10.1); Creatinine, Blood 0.72 mg/dL (0.60-1.20); Potassium, Blood 3.3 mmol/L (3.5-5.5)
[2022-09-01 10:38] VITALS: BP 158/51
[2022-09-01 13:38] LABS: Magnesium, Blood 1.8 mg/dL (1.6-2.4); Thyroid Stimulating Hormone 1.45 uIU/mL (0.360-4.800)
[2022-09-01 15:40] VITALS: BP 147/59
[2022-09-01] MEDS ORDERED: Isosorbide Mono30 MG PO (15:43)
[2022-09-01] MEDS ORDERED: METO100ER PO (15:44)
--- NOTE | 2022-09-01 19:22 | NUR ---
SHIFT SUMMARY PT AXO, PLEASANT AND COOPERATIVE WITH CARE THOUGH DROWSY THOUGHOUT THE DAY, SLEEPING LIGHTLY BUT MOST OF THE DAY. EASILY WOKEN. VSS. IV PATENT AND INFUSING PER EMAR. PT COMPLAINED OF PAIN, MEDICATED PER EMAR. BED IN LOW POSITION, CALL LIGHT WITHIN REACH. PHILLIP PATENT AND DRAINING.
[2022-09-01 19:55] VITALS: BP 148/59
--- NOTE | 2022-09-01 22:26 | NUR ---
SHIFT SUMMARY ADMITTED FOR RHABDO/UTI. FULL CODE. ANTIB RX ARE SCHEDULED. IV FLUID INFUSING ORDERED. PHILLIP IN PLACE FOR RETENTION. TELEMETRY: NSR @ 64 BPM. HE IS A 2 ASSIST W/FWW & GB - BSC. CARDIAC DIET. ON RA. HX: STRAIGHT CATHS @ HOME, CAD, DEMENTIA. LIVES @ HOME ALONE, UNSURE OF CAREGIVERS HOURS.
[2022-09-02 03:28] VITALS: BP 146/55
[2022-09-02 07:01] VITALS: BP 147/62
[2022-09-02 07:57] LABS: BASOPHILS ABSOLUTE AUTO 0.01 K/mm3 (0.00-0.23); BASOPHILS PERCENT AUTO 0 % (0-2); EOSINOPHILS ABSOLUTE AUTO 0.04 K/mm3 (0.00-0.68); EOSINOPHILS PERCENT AUTO 1 % (0-6); Hematocrit 29.5 % (37.0-53.0); Hemoglobin 10.5 g/dL (13.5-17.5); IMMATURE GRAN ABSOLUTE AUTO 0.08 K/mm3 (0.00-0.10); IMMATURE GRAN PERCENT AUTO 1 % (0-1); LYMPHOCYTES PERCENT AUTO 6 % (21-46); MONOCYTES PERCENT AUTO 7 % (4-13); Mean Corpuscular HGB Conc 35.6 g/dL (31.5-36.5); Mean Corpuscular Volume 96 fL (80-100); Mean Platelet Volume 10.9 fL (9.1-12.4); NEUTROPHILS ABSOLUTE AUTO 7.28 K/mm3 (1.96-9.15); NEUTROPHILS PERCENT AUTO 86 % (41-73); Platelet Count 140 K/mm3 (150-400); RDW Coefficient Variation 11.6 % (11.7-14.2); RDW Standard Deviation 40.4 fL (35.1-46.3); Red Blood Cell Count 3.09 M/mm3 (4.30-5.90); White Blood Cell Count 8.51 K/mm3 (4.00-11.30)
[2022-09-02 08:21] LABS: Albumin, Blood 2.6 g/dL (3.4-5.0); Anion Gap 6 mmol/L (6-16); Blood Urea Nitrogen 17 mg/dL (8-24); Bun/Creatinine Ratio 24.8 (12.0-20.0); CO2, Blood 24 mmol/L (21-32); CPK Creatine Kinase 606 U/L (39-308); Calcium, Blood 8.2 mg/dL (8.5-10.1); Chloride, Blood 117 mmol/L (98-108); Creatinine, Blood 0.69 mg/dL (0.60-1.20); Glomerular Filtration Rate 91 (60-); Glucose, Blood 113 mg/dL (70-99); Phosphorus, Blood 2.1 mg/dL (2.5-4.9); Potassium, Blood 3.4 mmol/L (3.5-5.5); Sodium, Blood 147 mmol/L (136-145)
--- NOTE | 2022-09-02 10:17 | NUR ---
CARDIOLOGY CONSULTED DR. MORTENSEN NOTIFIED OF TELE EVENTS OVERNIGHT. 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 PT CURRENTLY RUNNING 1ST DEGREEAV BLOCK IN THE 60S. PRINT OFF OF EVENT IN PHYSICAL CHART. DR. GARCIA CALLED FOR CARDIO CONSULT PER DR. MORTENSEN.
[2022-09-02 11:13] VITALS: BP 128/53
--- NOTE | 2022-09-02 11:24 | NUR ---
Spiritual Care Visit. Pt. is sitting up in a chair and welcomes my visit. Pt. initially declines spiritual care, but with theraputic listening and a calming presence rapport is established. Pt. displays evidence of engagement and awareness. A lengthy but positive conversation of cultural connection was engaged. Nursing staff came to care for Pt. Pt. verbalized gratitude for the spiritual care visit.
[2022-09-02 14:04] VITALS: BP 131/55
--- NOTE | 2022-09-02 17:04 | NUR ---
SHIFT SUMMARY CARDIOLOGY CONSULTED AND IS SUGESTING POSSIBLE PACEMAKER PLACEMENT. PT AND SON SHELLIE ARE DISCUSSING THIS DECISION NOW. PTS OTHER SON, FAROOQ ALSO NOTIFIED OF WHAT IS GOING ON WITH THE PERMISSION OF THE PATIENT. DR. GARCIA WAITING TO HERE THE FINAL DECISION. PT HAS HAD A 1ST DEGREE BLOCK IN THE 60S T/O THE DAY. NO OTHER ACUTE CHANGES IN ASSESSMENT AT THIS TIME. VS REVIEWED. CALL LIGHT IN REACH.
--- NOTE | 2022-09-02 17:45 | NUR ---
PLAN TO MOVE FORWARD WITH PACER PLACEMENT AFTER MRI OF THE HEAD IS COMPLETE.
[2022-09-02 20:32] VITALS: BP 150/60
[2022-09-03] VITALS (7 sets, daily range): BP systolic 144–180; BP diastolic 56–67
--- NOTE | 2022-09-03 00:41 | NUR ---
HELD REQUESTED AM MEDS HELD PLAVIX AND LASIX MORNING DOSES FOR 09/03/21 PER HOSPITALIST'S REQUEST
--- NOTE | 2022-09-03 05:11 | NUR ---
SHIFT SUMMARY ADMIT FOR RHABDO AND UTI. YESTERDAY 09-02-22, HAD 2ND DEGREE TYPE II HEART BLOCK AT 0155. HAS CARDIAC CONSULT AND HEAD MRI TODAY WITH DR. ELDER. POSSIBLE PACER PUT IN TODAY 09-03-22. NPO SINCE MIDNIGHT. HOLDING LASIX AND PLAVIX AT LEAST UNTIL AFTER MRI AND CONSULT ORDERED. LR DECREASED TO 75ML/HR FOR ONE BAG, THEN DC'D. HOPING FOR DC HOME TODAY WITH SON CAM. REQUESTING CONS[facility] FOR [facility] AT HOME. TELE MONITOR READS NSR WITH RATE IN THE 60'S. HAS SLIGHT DRY COUGH.
[2022-09-03 05:48] LABS: BASOPHILS ABSOLUTE AUTO 0.02 K/mm3 (0.00-0.23); BASOPHILS PERCENT AUTO 0 % (0-2); EOSINOPHILS PERCENT AUTO 2 % (0-6); Hematocrit 28.8 % (37.0-53.0); IMMATURE GRAN ABSOLUTE AUTO 0.05 K/mm3 (0.00-0.10); IMMATURE GRAN PERCENT AUTO 1 % (0-1); LYMPHOCYTES ABSOLUTE AUTO 0.75 K/mm3 (0.84-5.20); LYMPHOCYTES PERCENT AUTO 12 % (21-46); MONOCYTES ABSOLUTE AUTO 0.55 K/mm3 (0.16-1.47); MONOCYTES PERCENT AUTO 9 % (4-13); Mean Corpuscular HGB 33.1 pg (26.0-34.0); Mean Corpuscular HGB Conc 34.7 g/dL (31.5-36.5); Mean Corpuscular Volume 95 fL (80-100); Mean Platelet Volume 10.7 fL (9.1-12.4); NEUTROPHILS ABSOLUTE AUTO 4.93 K/mm3 (1.96-9.15); NEUTROPHILS PERCENT AUTO 77 % (41-73); Platelet Count 143 K/mm3 (150-400); RDW Coefficient Variation 11.5 % (11.7-14.2); RDW Standard Deviation 39.9 fL (35.1-46.3); Red Blood Cell Count 3.02 M/mm3 (4.30-5.90)
--- NOTE | 2022-09-03 05:51 | NUR ---
CTA/INSIDE POLISHER I HAVE READ THE INSIDE POLISHER'S DOCUMENTATION AND I AGREE. SHIFT SUMMARY IN INSIDE POLISHER NOTE
[2022-09-03 06:21] LABS: Albumin, Blood 2.5 g/dL (3.4-5.0); Anion Gap 7 mmol/L (6-16); Blood Urea Nitrogen 15 mg/dL (8-24); Bun/Creatinine Ratio 20.2 (12.0-20.0); CO2, Blood 24 mmol/L (21-32); Calcium, Blood 8.1 mg/dL (8.5-10.1); Chloride, Blood 114 mmol/L (98-108); Creatinine, Blood 0.74 mg/dL (0.60-1.20); Glomerular Filtration Rate 89 (60-); Glucose, Blood 105 mg/dL (70-99); Phosphorus, Blood 3.1 mg/dL (2.5-4.9); Potassium, Blood 3.6 mmol/L (3.5-5.5); Sodium, Blood 145 mmol/L (136-145)
--- NOTE | 2022-09-03 13:46 | NUR ---
CALLED DR ELDER- PT HAD MRI COMPLETED, CALLED CARDIOLOGY THEY WERE AWAITING THE MRI TO PLACE A PACER FOR THE PT. SPOKE ABOUT THE PT HAVING IMDUR ORDERED AT 0900 AND AT 1200. RECIEVED ORDER TO HOLD THE 1200 DOSE FOR TODAY. PT IS TO REMAIN NPO FOR PACER PLACEMENT TODAY.
--- NOTE | 2022-09-03 17:25 | NUR ---
SHIFT SUMMARY PT IS AN 86 YR OLD MALE HERE AFTER BEING FOUND DOWN IN HIS HOME ON 08/31. DX RHABDOMYOLYSIS AND UTI. COOPERATIVE AND PLEASANT, ALERT AND ORIENTED TO SELF, PLACE, AND AWARE AND UNDERSTANDING OF SITUATION, TREATMENT, AND PROCEDURES. PER PTS SON SHELLIE HE EXPRESSES COGNITIVE DECLINE. PLAN IS TO D/C HOME WITH SON. DUALCHAMBER PACER PLACED TODAY TO TREAT 2ND DEGREE HEART BLOCK. PHILLIP CATHETER IN PLACE D/T RETENTION. PT BACK IN ROOM, COMFORTABLE, POST PACEMAKER PRECAUTIONS ( ICE APPLICATION TO INCISION, BEDREST, RESTRICT MOVEMENT IN THE L ARM, AVOID LIFTING L ARM/SHOULDER). HE IS COMFORTABLE AT THIS TIME. FOOD AND DRINK PROVIDED SINCE BEING NPO SINCE 00:00.
--- NOTE | 2022-09-03 17:58 | NUR ---
Pt had new pacemaker placed today, is not interested in changing code status or further discussion of advance care planning at this time.
[2022-09-04 00:01] VITALS: BP 139/56
[2022-09-04 04:55] VITALS: BP 152/56
[2022-09-04 05:36] LABS: BASOPHILS ABSOLUTE AUTO 0.01 K/mm3 (0.00-0.23); BASOPHILS PERCENT AUTO 0 % (0-2); EOSINOPHILS ABSOLUTE AUTO 0.09 K/mm3 (0.00-0.68); EOSINOPHILS PERCENT AUTO 1 % (0-6); Hematocrit 29.8 % (37.0-53.0); Hemoglobin 10.5 g/dL (13.5-17.5); IMMATURE GRAN ABSOLUTE AUTO 0.07 K/mm3 (0.00-0.10); IMMATURE GRAN PERCENT AUTO 1 % (0-1); LYMPHOCYTES ABSOLUTE AUTO 0.62 K/mm3 (0.84-5.20); LYMPHOCYTES PERCENT AUTO 9 % (21-46); MONOCYTES ABSOLUTE AUTO 0.54 K/mm3 (0.16-1.47); MONOCYTES PERCENT AUTO 8 % (4-13); Mean Corpuscular HGB 33.2 pg (26.0-34.0); Mean Corpuscular HGB Conc 35.2 g/dL (31.5-36.5); Mean Corpuscular Volume 94 fL (80-100); Mean Platelet Volume 10.1 fL (9.1-12.4); NEUTROPHILS ABSOLUTE AUTO 5.25 K/mm3 (1.96-9.15); NEUTROPHILS PERCENT AUTO 80 % (41-73); Platelet Count 148 K/mm3 (150-400); RDW Coefficient Variation 11.1 % (11.7-14.2); RDW Standard Deviation 38.6 fL (35.1-46.3); Red Blood Cell Count 3.16 M/mm3 (4.30-5.90); White Blood Cell Count 6.58 K/mm3 (4.00-11.30)
--- NOTE | 2022-09-04 06:44 | NUR ---
Shift Summary Pt had new pace maker put in yesterday. VSS, ice packs were put on the wound frequently t/o the early shift per orders. No c/o chest pain or pain at the incision site this shift. No swelling around incision noted. Small amount of red discharge noted on the dressing. Pt slept well t/o the night. C/O headache and rcvd Tylenol once per emar.
[2022-09-04 06:50] LABS: Ferritin, Serum 164 ng/mL (26-388); Iron Serum 40 ug/dL (65-175); Percent Saturation 23.7 % (20.0-50.0); Total Iron Binding Capacity 169 ug/dL (250-450)
[2022-09-04 06:54] LABS: Albumin, Blood 2.5 g/dL (3.4-5.0); Anion Gap 6 mmol/L (6-16); Blood Urea Nitrogen 12 mg/dL (8-24); Bun/Creatinine Ratio 17.9 (12.0-20.0); CO2, Blood 24 mmol/L (21-32); Calcium, Blood 8.3 mg/dL (8.5-10.1); Chloride, Blood 114 mmol/L (98-108); Creatinine, Blood 0.67 mg/dL (0.60-1.20); Glomerular Filtration Rate 92 (60-); Glucose, Blood 102 mg/dL (70-99); Phosphorus, Blood 3.2 mg/dL (2.5-4.9); Potassium, Blood 3.6 mmol/L (3.5-5.5); Sodium, Blood 144 mmol/L (136-145)
[2022-09-04 07:22] VITALS: BP 167/58
[2022-09-04] MEDS ORDERED: ACET325 PO (11:20)
[2022-09-04] MEDS ORDERED: ATOR40TA PO (11:20)
[2022-09-04 13:15] VITALS: BP 127/54
[2022-09-04 15:13] LABS: SARS-Cov-2 (COVID-19) PCR, MMC NEGATIVE (NEGATIVE)
[2022-09-04 15:24] VITALS: BP 148/58
--- NOTE | 2022-09-04 16:24 | NUR ---
DISCHARGE SUMMARY PT DISCHARGED TO [facility]. PT LEFT ROOM JUST PRIOR TO THIS NOTE WITH [facility] IN WHEELCHAIR. REPORT CALLED AND GIVEN TO MARYBETH Roberts RN AT 1620, ALL QUESTIONS ANSWERED. IV'S DC'D AND BELONGINGS RETURNED. APPOINTMENT MADE WITH CARDIOLOGY TO FOLLOW UP AT 1 WEEK. 09/11/22 AT 9. MARYBETH COLEMAN. KENJI IN PLACE PATENT AND DRAINING.
== END 2022-09-04 16:17 | DRG 981 ==
LOC: ER 09:57 → MEDS 12:13
PROVIDERS: Emergency Medicine; ADMIT Family Medicine
PROC: 0T9B70Z Drainage of Bladder with Drainage Device, Via Natural or Artificial Opening (ICD-10-PCS; 2022-08-31)
PROC: 0JH606Z Insertion of Pacemaker, Dual Chamber into Chest Subcutaneous Tissue and Fascia, Open Approach (ICD-10-PCS; principal; 2022-09-03)
PROC: 02H63JZ Insertion of Pacemaker Lead into Right Atrium, Percutaneous Approach (ICD-10-PCS; 2022-09-03)
PROC: 02HK3JZ Insertion of Pacemaker Lead into Right Ventricle, Percutaneous Approach (ICD-10-PCS; 2022-09-03)
DX: M62.82 Rhabdomyolysis (principal); I21.A1 Myocardial infarction type 2; E87.0 Hyperosmolality and hypernatremia; I50.32 Chronic diastolic (congestive) heart failure; I48.92 Unspecified atrial flutter; I47.1 Supraventricular tachycardia; N39.0 Urinary tract infection, site not specified; Z20.822 Contact with and (suspected) exposure to COVID-19; I25.2 Old myocardial infarction; I11.0 Hypertensive heart disease with heart failure; E78.5 Hyperlipidemia, unspecified; I44.1 Atrioventricular block, second degree; I25.10 Atherosclerotic heart disease of native coronary artery without angina pectoris; M19.90 Unspecified osteoarthritis, unspecified site; F32.A Depression, unspecified; F03.90 Unspecified dementia, unspecified severity, without behavioral disturbance, psychotic disturbance, mood disturbance, and anxiety; G62.9 Polyneuropathy, unspecified; I08.1 Rheumatic disorders of both mitral and tricuspid valves; I48.0 Paroxysmal atrial fibrillation; E87.6 Hypokalemia; E83.39 Other disorders of phosphorus metabolism; D63.8 Anemia in other chronic diseases classified elsewhere; D69.6 Thrombocytopenia, unspecified; Z95.1 Presence of aortocoronary bypass graft; Z87.891 Personal history of nicotine dependence; Z88.8 Allergy status to other drugs, medicaments and biological substances; Z79.02 Long term (current) use of antithrombotics/antiplatelets; Z79.82 Long term (current) use of aspirin; Z79.899 Other long term (current) drug therapy
CPT/HCPCS: 33208; 36415; 51702; 51798; 70551; 71045; 71046; 80048; 80053; 80069; 81001; 82550; 82553; 82607; 82728; 82746; 82947; 83540; 83550; 83605; 83735; 84443; 84484; 85025; 87040; 93005; 93010; 93306; 96365-59; 97162; 97166; 97530; 97535; 99152; 99153; 99285-25; A9270; C1785; C1894; C1898; J0690; J0696; J1644; J2250; J3010; J7030; J7040; J7120; Q9967; U0002

== ENCOUNTER 2024-11-24 19:23 | Inpatient (IN) | payer OTHER, MEDICARE ==
[~2024-11-24] VITALS: Ht 175.3 cm; Wt 81.3 kg
[~2024-11-24 19:23] MED LIST changes: +ACET325 PO; +CEPH500 PO; +Cefpodoxime Pr100 MG PO; +FINA5 PO; +METO100ER PO
[2024-11-24 20:06] LABS: BASOPHILS ABSOLUTE AUTO 0.00 K/mm3 (0.00-0.23); BASOPHILS PERCENT AUTO 0 % (0-2); EOSINOPHILS ABSOLUTE AUTO 0.00 K/mm3 (0.00-0.68); EOSINOPHILS PERCENT AUTO 0 % (0-6); Hematocrit 33.4 % (37.0-53.0); Hemoglobin 11.3 g/dL (13.5-17.5); IMMATURE GRAN ABSOLUTE AUTO 0.02 K/mm3 (0.00-0.10); IMMATURE GRAN PERCENT AUTO 0 % (0-1); LYMPHOCYTES ABSOLUTE AUTO 0.45 K/mm3 (0.84-5.20); LYMPHOCYTES PERCENT AUTO 7 % (21-46); MONOCYTES ABSOLUTE AUTO 0.64 K/mm3 (0.16-1.47); MONOCYTES PERCENT AUTO 9 % (4-13); Mean Corpuscular HGB Conc 33.8 g/dL (31.5-36.5); Mean Corpuscular Volume 97 fL (80-100); NEUTROPHILS ABSOLUTE AUTO 5.85 K/mm3 (1.96-9.15); NEUTROPHILS PERCENT AUTO 84 % (41-73); NRBC ABSOLUTE 0.00 K/mm3 (0.00-0.02); NRBC Auto 0.0 /100 WBC (0.0-0.2); Platelet Count 134 K/mm3 (150-400); RDW Coefficient Variation 13.2 % (11.7-14.2); RDW Standard Deviation 47.0 fL (35.1-46.3)
[2024-11-24 20:21] LABS: Alanine Aminotransfer (ALT/SGP 16.0 U/L (12-78); Albumin, Blood 2.8 g/dL (3.4-5.0); Albumin/Globulin Ratio 0.9 (0.8-1.8); Anion Gap 8.0 mmol/L (3-11); Aspartate Aminotrans (AST/SGOT 15.0 U/L (12-37); Bilirubin, Total 0.5 mg/dL (0.1-1.0); Blood Urea Nitrogen 27.0 mg/dL (8-24); CO2, Blood 24.0 mmol/L (21-32); Calcium, Blood 8.0 mg/dL (8.5-10.1); Chloride, Blood 112.0 mmol/L (98-108); Creatinine, Blood 1.71 mg/dL (0.60-1.20); Globulin, Blood 3.0 g/dL (2.2-4.0); Glucose, Blood 118.0 mg/dL (70-99); Potassium, Blood 3.8 mmol/L (3.5-5.5); Sodium, Blood 140.0 mmol/L (136-145); Total Protein, Blood 5.8 g/dL (6.4-8.2)
[2024-11-24 21:19] LABS: pH Blood Venous 7.33 (7.34-7.37)
[2024-11-24] MEDS ORDERED: NS 1,000 ML IV SCH ×2 (21:35→23:00)
[2024-11-24] MEDS ORDERED: FentaNYL Citrate 50 MCG/ML 2 ML Injection IV PRN (22:05)
[2024-11-24] MEDS ORDERED: ELIQUIS5 M2 ×2 (23:02→23:03)
[2024-11-24] MEDS ORDERED: JARDIANCE10 MG (23:05)
[2024-11-24] MEDS ORDERED: GABA300 PO (23:05)
[2024-11-24] MEDS ORDERED: MEMA10 (23:06)
[2024-11-24] MEDS ORDERED: METO100ER (23:07)
[2024-11-24] MEDS ORDERED: PANT40 (23:08)
[2024-11-24] MEDS ORDERED: DICLOFENAC SOD100 GM (23:09)
[2024-11-24] MEDS ORDERED: Vitamin B-12100 MCG (23:09)
[2024-11-24] MEDS ORDERED: LOPE2C (23:10)
[2024-11-25] VITALS (14 sets, daily range): BP systolic 129–163; BP diastolic 52–90
[2024-11-25 00:29] LABS: Source, Urine Clean Catch
[2024-11-25 00:53] LABS: Bilirubin, Urine Neg (Neg); Color, Urine Yellow (P-Yellow); Glucose Qualitative, Urine 3+ (Neg); Ketones, Urine Neg (Neg); Leukocyte Esterase, Urine 3+ (Neg); Protein, Urine 2+ (Neg); Specific Gravity, Urine 1.015 (1.003-1.022); Urobilinogen, Urine NORM (Normal)
[2024-11-25 01:01] LABS: White Blood Cells, Urine TNTC /hpf (0-5)
[2024-11-25 01:04] LABS: U Amphetamine Screen Not Detected; U Barbituate Screen Not Detected; U Benzodiazapine Screen Not Detected; U Buprenorphine Screen Not Detected; U Cannabinoids Screen Not Detected; U Cocaine Screen Not Detected; U Methadone Screen Not Detected; U Methamphetamine Screen Not Detected; U Opiates Screen DETECTED; U Oxycodone Screen Not Detected; U Phencyclidine Screen Not Detected
[2024-11-25] MEDS ORDERED: FOLI1 PO (01:57)
[2024-11-25] MEDS ORDERED: METO100ER PO (02:00)
[2024-11-25] MEDS ORDERED: Vitamin B-12100 MCG PO (02:03)
[2024-11-25] MEDS ORDERED: CefTRIAXone Sodium 1,000 MG in NS 100 ML IV SCH (04:09)
--- NOTE | 2024-11-25 04:55 | NUR ---
PATIENT ADMITTED DURING SHIFT FOR FATIGUE. PATIENT IS DROWSY WHEN ARRIVING TO UNIT BUT RESPONDS TO VERBAL STIMULI. PATIENT IS VERY HARD OF HEARING- HEARING AIDES IN EARS. PATIENT ABLE TO ANSWER SELECT QUESTIONS. TELE IN PLACE-RUNNING AV PACED IN THE 60'S. PATIENT HAS BRIEF ON AND REPORTS HE KNOWS WHEN HE HAS TO GO TO THE BATHROOM. PATIENT EDUCATED ON HOW TO USE THE CALL LIGHT. NS RUNNING AT 100. PATIENT IS ON ROOM AIR-SATING >92%. BED ALARM IS ON, BED IN LOW POSITION WITH WHEELS LOCKED. CALL LIGHT IN REACH
[2024-11-25 05:22] LABS: BASOPHILS ABSOLUTE AUTO 0.01 K/mm3 (0.00-0.23); BASOPHILS PERCENT AUTO 0 % (0-2); EOSINOPHILS ABSOLUTE AUTO 0.01 K/mm3 (0.00-0.68); EOSINOPHILS PERCENT AUTO 0 % (0-6); Hematocrit 33.2 % (37.0-53.0); Hemoglobin 11.2 g/dL (13.5-17.5); IMMATURE GRAN ABSOLUTE AUTO 0.02 K/mm3 (0.00-0.10); IMMATURE GRAN PERCENT AUTO 0 % (0-1); LYMPHOCYTES ABSOLUTE AUTO 0.45 K/mm3 (0.84-5.20); LYMPHOCYTES PERCENT AUTO 7 % (21-46); MONOCYTES ABSOLUTE AUTO 0.61 K/mm3 (0.16-1.47); MONOCYTES PERCENT AUTO 10 % (4-13); Mean Corpuscular HGB Conc 33.7 g/dL (31.5-36.5); Mean Corpuscular Volume 95 fL (80-100); NEUTROPHILS ABSOLUTE AUTO 5.06 K/mm3 (1.96-9.15); NEUTROPHILS PERCENT AUTO 82 % (41-73); NRBC ABSOLUTE 0.00 K/mm3 (0.00-0.02); NRBC Auto 0.0 /100 WBC (0.0-0.2); Platelet Count 119 K/mm3 (150-400); RDW Coefficient Variation 13.2 % (11.7-14.2); RDW Standard Deviation 46.5 fL (35.1-46.3)
[2024-11-25 05:48] LABS: Alanine Aminotransfer (ALT/SGP 15.0 U/L (12-78); Albumin, Blood 2.5 g/dL (3.4-5.0); Albumin/Globulin Ratio 0.9 (0.8-1.8); Anion Gap 10.0 mmol/L (3-11); Aspartate Aminotrans (AST/SGOT 22.0 U/L (12-37); Bilirubin, Total 0.4 mg/dL (0.1-1.0); Blood Urea Nitrogen 24.0 mg/dL (8-24); CO2, Blood 22.0 mmol/L (21-32); Calcium, Blood 7.7 mg/dL (8.5-10.1); Chloride, Blood 114.0 mmol/L (98-108); Creatinine, Blood 1.26 mg/dL (0.60-1.20); Globulin, Blood 2.9 g/dL (2.2-4.0); Glucose, Blood 100.0 mg/dL (70-99); Potassium, Blood 3.6 mmol/L (3.5-5.5); Sodium, Blood 142.0 mmol/L (136-145); Total Protein, Blood 5.4 g/dL (6.4-8.2)
[2024-11-25] MEDS ORDERED: Enoxaparin 40 MG/0.4 ML SYR SC SCH (09:00)
[2024-11-25 15:55] LABS: Campylobacter Sp Not Detected (NOT DETECT); E. Coli O157 Not Detected (NOT DETECT); Enteroaggregative E. coli-EAEC Not Detected (NOT DETECT); Enteropathogenic E. coli-EPEC Detected (NOT DETECT); Enterotoxigenic E. coli-ETEC Not Detected (NOT DETECT); Salmonella Sp Not Detected (NOT DETECT); Shiga Toxin-prod E. coli-STEC Not Detected (NOT DETECT); Shigella/Enteroin E. coli-EIEC Not Detected (NOT DETECT); Vibrio Sp Not Detected (NOT DETECT)
--- NOTE | 2024-11-25 16:29 | NUR ---
RN NOTE AT 1545 MR JOHN C/O CENTRAL CHEST PAIN RADIATING TO THE LEFT CHEST, RIGHT CHEST AND RIGHT JAW. 6/10 PAIN. ECG AND VS DONE. DR SANTIAGO CAME TO BEDSIDE TO ASSESS PATIENT. TELE WAS CALLED AT TIME OF CHEST PAIN, ALFONSO REPORTED THAT HEART RATE THAT IS AV PACED IN THE 60S HAD INCREASED TO THE 90S AT 1500HRS. DR SANTIAGO CAME TO BEDSIDE TO ASSESS PATIENT. ASA 325 MG PO GIVEN. NTG GIVEN WITH CP 6/10. TO 4/10 AFTER 1ST NTG. TO 3/10 AFTER 2ND NTG. PT PLACED ON OXYGEN 2L NC WHEN SAT 89% ON ROOM AIR AND CONTINUOUS PULSE OX NOWN AT 94%. MAINTAINING BP AT 157/80 AFTER 2ND NTG. 3RD NTG GIVEN.
--- NOTE | 2024-11-25 16:36 | NUR ---
PAIN STILL AT 3/10 AFTER 3RD NTG. WILL ADMINISTER MORPHINE.
--- NOTE | 2024-11-25 16:45 | NUR ---
SHIFT SUMMARY MR JOHN WAS SLEEPY THIS MORNING, AWOKE TO VERBAL STIMULI. THROUGHOUT THE MORNING HE BECAME MORE AWAKE AND INTERACTIVE. HE WAS STARTED ON REGULAR DIET AND ATE WELL FOR BREAKFAST AND 50% OF LUNCH. NO NAUSEA. HE AMBULATED TO THE BATHROOM WITH 1 PERSON ASSIST WITH FWW WITH URGENCY FOR DIARRHEA STOOL X 2. SAMPLE TO LAB. HE IS ON TELEMETRY AV PACED AT 60. NOTE EPISODE OF CHEST PAIN AT 1545 AND REPORT OF HR UP TO 90S AT 1500HRS. CHEST PAIN IMPROVED WITH NITRO SL AND HAS GONE AWAY COMPLETELY AFTER MORPHINE IV. RESTING ON OXYGEN 2L NC. HIS RESPIRATION RATE DID ELEVATE TO 24 WITH CHEST PAIN, NOW BACK TO 18/MINUTE. MR JOHN LIVES IN [facility]. HE SELF-CATHS 3-4 TIMES A DAY AND SAID HE NORMALLY FEELS THE URGE TO VOID BEFORE HE CATHS. BLADDER SCAN WAS 400 ~ MIDDAY AND HE SELF-CATHED 475CC. HIS SON SHELLIE VISITED TODAY. AWAITING TRANSFER TO PCU FOR ECG CHANGES.
[2024-11-25] MEDS ORDERED: Morphine Sulfate 4 MG/1 ML Injection IV PRN (17:00)
[2024-11-25] MEDS ORDERED: Morphine Sulfate 4 MG/1 ML Injection IV ONE (17:00)
[2024-11-25] MEDS ORDERED: Metoprolol Tartrate 1 MG/ML 5 ML VIAL IV ONE (17:10)
--- NOTE | 2024-11-25 17:11 | NUR ---
REPORT CALLED TO [facility] CR[facility]. DR PUGA CAME TO SEE PT. PT TRANSFERING TO PCU NOW.
[2024-11-25 17:47] LABS: Prothrombin Time Results 12.5 Sec (9.7-11.5)
[2024-11-25] MEDS ORDERED: Heparin Sodium,Porcine/0.5 NS 500 ML IV SCH (17:55)
[2024-11-25] MEDS ORDERED: Isosorbide Mononitrate 60 MG TABCR PO SCH (18:00)
--- NOTE | 2024-11-25 18:28 | NUR ---
PT ARRIVED IN THE UNIT FROM MEDICAL FLOOR. PT REPORTS 3/10 CHEST PAIN UPON ARRIVAL BUT THEN SUBSIDED TO NO PAIN AFTER WHEN EATING DINNER. HEPARIN GTT STARTED AT 15U/KG/HR. VITALS HRR AV PACED NOW ON THE 70'S, SBP 150'S, PT HAS IV METOPROLOL 15MG PUSH CALLED AND VERIFY WITH DR PUGA TO GIVE IF HRR IS STILL IN THE 90'S AND WITH ELEVATED BP, PUSH WAS NOT GIVEN DUE TO HRR BEING IN THE 70'S. PT ON 2L OF O2 VIA NASAL CANNULA, AFEBRILE. PT IS ALERT AND ORIENTED BUT IS HARD OF HEARING, ALSO FORGETFUL. PT SEEMED TO PICK ON LINES AND TUBINGS BUT NOT PULLING THEM, BED ALARM ON FOR SAFETY. DR PUGA SAW PT PRIOR TO TRANSFER, MEDICATION CHANGES ON THE EMAR. WILL REPORT TO ONCOMING SHIFT
--- NOTE | 2024-11-25 19:59 | NUR ---
NURSE NOTE CALL RETURNED TO NURSE AT [facility] WHERE PT LIV[facility], UPDATE GIVEN. NURSE SHARED THAT PATIENT IS NORMAL INDEPENT AND ONLY NEEDS HELP WITH HIS PILLS. SHE STATES HE STILL DRIVES AND DOES ALL ADLs. BED IN LOW CALL LIGHT IN REACH, CARE CONTINUES
[2024-11-26] VITALS (17 sets, daily range): BP systolic 146–167; BP diastolic 63–95
[2024-11-26 01:12] LABS: BASOPHILS ABSOLUTE AUTO 0.01 K/mm3 (0.00-0.23); BASOPHILS PERCENT AUTO 0 % (0-2); EOSINOPHILS ABSOLUTE AUTO 0.01 K/mm3 (0.00-0.68); EOSINOPHILS PERCENT AUTO 0 % (0-6); Hematocrit 32.0 % (37.0-53.0); Hemoglobin 10.9 g/dL (13.5-17.5); IMMATURE GRAN ABSOLUTE AUTO 0.05 K/mm3 (0.00-0.10); IMMATURE GRAN PERCENT AUTO 1 % (0-1); LYMPHOCYTES ABSOLUTE AUTO 0.64 K/mm3 (0.84-5.20); LYMPHOCYTES PERCENT AUTO 9 % (21-46); MONOCYTES ABSOLUTE AUTO 0.83 K/mm3 (0.16-1.47); MONOCYTES PERCENT AUTO 12 % (4-13); Mean Corpuscular HGB Conc 34.1 g/dL (31.5-36.5); Mean Corpuscular Volume 95 fL (80-100); NEUTROPHILS ABSOLUTE AUTO 5.57 K/mm3 (1.96-9.15); NEUTROPHILS PERCENT AUTO 78 % (41-73); NRBC ABSOLUTE 0.00 K/mm3 (0.00-0.02); NRBC Auto 0.0 /100 WBC (0.0-0.2); Platelet Count 135 K/mm3 (150-400); RDW Coefficient Variation 13.1 % (11.7-14.2); RDW Standard Deviation 45.5 fL (35.1-46.3)
[2024-11-26 01:39] LABS: Alanine Aminotransfer (ALT/SGP 19.0 U/L (12-78); Albumin, Blood 2.5 g/dL (3.4-5.0); Albumin/Globulin Ratio 0.9 (0.8-1.8); Anion Gap 5.0 mmol/L (3-11); Aspartate Aminotrans (AST/SGOT 30.0 U/L (12-37); Bilirubin, Total 0.4 mg/dL (0.1-1.0); Blood Urea Nitrogen 19.0 mg/dL (8-24); CO2, Blood 24.0 mmol/L (21-32); Calcium, Blood 7.7 mg/dL (8.5-10.1); Chloride, Blood 117.0 mmol/L (98-108); Creatinine, Blood 0.98 mg/dL (0.60-1.20); Globulin, Blood 2.8 g/dL (2.2-4.0); Glucose, Blood 117.0 mg/dL (70-99); Magnesium, Blood 1.9 mg/dL (1.6-2.4); Potassium, Blood 3.4 mmol/L (3.5-5.5); Sodium, Blood 143.0 mmol/L (136-145); Total Protein, Blood 5.3 g/dL (6.4-8.2)
[2024-11-26] MEDS ORDERED: Clarify Drug Order XX ONE (01:45)
--- NOTE | 2024-11-26 05:07 | NUR ---
NURSE NOTE PATIENT TROPONIN INCREASED FROM 259 TO 3160 THIS AM. CALL PLACED TO DR. PUGA PAGER, CALL RETURNED MOMENTS LATER. CRITICAL VALUE RELAYED TO MD. PT HAS BEEN NPO SINCE MIDNIGHT. PT DENIES CHEST PAIN OR PRESSURE AT THIS TIME, HE DID HOWEVER REPORT A WALTER OF 2 OUT OF 10. BED IN LOWEST POSTION, CALL LIGHT IN REACH.
--- NOTE | 2024-11-26 06:00 | NUR ---
NOC SHIFT SUMMARY PT IS A+O X4 ABLE TO MAKE NEEDS KNOWN, HE SEEMS TO BE FORGETFUL AT TIMES. HE IS REDIRECTABLE AND KIND. COOPERATIVE WITH CARES. BED ALARM ON T/O NIGHT FOR SAFETY PATIENT HOWEVER DID NOT ATTEMPT TO GET OUT OF BED AT ALL DURING THE NIGHT. PATIENT EXPRESSED WANTING TO LEAVE THIS MORNING BUT THIS RN EXPLAINED HE WOULD BE STAYING ANOTHER DAY AND HE SEEMED OKAY WITH THIS. PT CONTINUES TO DENIE CHEST PATIENT SINCE ARRIVING TO PCU. HEPARIN GTT INFUSING PER EMAR (NO RATE CHANGES OVER NIGHT). R A/C IV REMOVED D/T IT LEAKING. STRAIGHT CATH X1 800MLS DRAINED FROM BLADDER. PATIENT EXPRESSED HE USUALLY SELF CATH'S THREE TIMES A DAY AROUND MEAL TIME AND DOES NOT FEEL THE URGE TO URINATE. BED IN LOW, CALL LIGHT IN REACH. CARE CONTINUES. WILL REPORT TO ONCOMING RN.
--- NOTE | 2024-11-26 06:31 | NUR ---
NURSE NOTE DR. PUGA ROUNDED ON PATIENT THIS AM, EXPLAINED ANGIO PROCESS. PATIENT CONSENT OBTAINED. PLAN FOR ANGIO THIS AM AFTER 0800. NPO FOR PROCEDURE. BED IN LOW, CALL LIGHT IN REACH
[2024-11-26] MEDS ORDERED: Mag Sulfate 1 GM/D5% 100ML 100 ML IV STA (08:15)
[2024-11-26] MEDS ORDERED: Potassium Chl 20MEQ/Water100ML 100 ML IV SCH (08:20)
[2024-11-26] MEDS ORDERED: Torsemide 20 MG TAB PO SCH (09:00)
[2024-11-26] MEDS ORDERED: Verapamil HCL 2.5 MG/ML 2ML Injection ONE (09:47)
[2024-11-26] MEDS ORDERED: Nitroglycerin 2 MG/20 ML BTL ONE (09:48)
[2024-11-26] MEDS ORDERED: Heparin Sodium 1000 Units/ML 10ML MDV ONE ×2 (09:48→12:43)
[2024-11-26] MEDS ORDERED: NS 250 ML IV ONE (09:48)
[2024-11-26] MEDS ORDERED: NS 1,000 ML IV ONE ×2 (09:48→10:29)
[2024-11-26] MEDS ORDERED: FentaNYL Citrate 50 MCG/ML 2 ML Injection ONE (10:33)
[2024-11-26] MEDS ORDERED: Midazolam HCl 1MG / ML 2ML Vial ONE (10:33)
[2024-11-26] MEDS ORDERED: NS 1,000 ML IV SCH (14:00)
[2024-11-26] MEDS ORDERED: Ipratropium/Albuterol SulF 2.5-0.5MG/3 ML Amp INH PRN (15:35)
--- NOTE | 2024-11-26 18:15 | NUR ---
PT SUMMARY; PT GOT INCREASE CONFUSION POST ANGIO NEEDING 1;1 SUPERVISION WHILE RECOVERING PT WAS UNABLE TO KEEP LAYING FLAT FOR 3 HRS, PT HAS BEEN TRYING TO GET OUT BED MULTIPULE TIMES. SOME HALLUCINATION,KEEPS INSISTING HE IS COMING HOME TODAY WITH THE SON, PT WAS REDIRECTED MULTIPULE TIMES. PT ALSO VERY WHEEZY AND GOT SOB NEEDING AT LEAST 3.5LITERS OF 02 VIA NASAL CANNULA. ALSO HAD SOME BLOOD TINGED SPUTUM TWICE. DR SANTIAGO MADE AWARE, ORDERED CHEST XRAY AND SOME BREATHING TX. DR SANTIAGO CALLED AND MADE AWARE OF THE CXR RESULTS. DR SINGER CAME BY WELL AND MADE AWARE OF THE CHEST PAIN 3/10 ON AND OFF, EKG WAS DONE DR SINGER ABLE TO REVIEW. PT WS ABLE TO PREFORM SELF CATH BEFORE GOING TO PROCEDURE AND THIS RN PERFORMED THE STRAIGHT CATH DURING POST ANGIO RECOVERY. NO OTHER ISSUES AT THIS TIME, BED ALARM ON FOR SAFETY AND FREQUENT CHECKS BEING DONE. WILL REPORT TO ONCOMING PREDATOR CONTROL TRAPPER TO PASS OF CARE.
[2024-11-26] MEDS ORDERED: Lactobacil 2-S.Thermo-Bifido 1 1 Cap PO SCH (21:00)
--- NOTE | 2024-11-26 21:34 | NUR ---
ASSUMED CARE AT APPROX 1900 PT IS ALERT, HE IS TRYING TO CLIMB OUT OF BED AND LEAVE THE ROOM AT START OF SHIFT. HE IS CONFUSED AND NOT UNDERSTANDING WHERE HE IS. HE SET THE BED ALARM OFF A FEW TIMES. DURING THIS SHUTTLE VENEERING SUPERVISOR PT ADMITTED TO BECOMING CONFUSED RECENTLY AND FORGETTING THINGS. PATIENT HAS SINCE CALMED DOWN AND IS LAYING IN BED TRYING TO REST. PATIENT AMBULATED TO THE [facility] WITH 2 STAFF MEMEBERS AND A FWW. PT BRIEF WAS WET WITH URINE AT THIS TIME, HE DID VOID VERY LITTLE IN THE TOLIET. BLADDER SCAN POST VOID SHOWED 491 MLS OF URINE IN THE BLADDER. STRAIGHT CATH WAS PERFORMED AND 600 MLS WAS DRAINED. PT IS ON 2L NC SATTING AT 97%, HOB 30 DEGREES. R GROIN SITE FULLY RECOVERED PRIOR TO START OF SHIFT. IS SOFT NON TENDER, SLIGHT BRUISING NOTED AT SITE. DRESSING IS INTACT. PT REFUSED SCD'S AT THIS TIME. BED IN LOWEST POSTION, BED ALARM ON FOR SAFETY, AND CALL LIGHT IN REACH.
[2024-11-27 00:01] VITALS: BP 151/76
[2024-11-27 03:08] VITALS: BP 160/74
--- NOTE | 2024-11-27 06:42 | NUR ---
NOC SHIFT SUMMARY PT SEEMS TO BE MORE ALERT AND REDIRECTABLE THIS AM. CARDIOLOGY SIGNED OFF FROM THEIR STAND POINT THIS AM AND PATIENT IS PLEASED TO HEAR THIS. L GROIN SITE SOFT NONTENDER, BRUISING NOTED EARILER LOOKS THE SAME, DRESSING INTACT. PT DENIES CHEST PAIN OR PRESSURE T/O THE SHIFT. PATIENT ALLOWED THIS RN TO PLACE SCD'S DURING THE NIGHT. BREIF WAS DAMP WITH URINE THIS AM. PATIENT SELF CATHS 3-4 TIMES A DAY AND WILL NEED THAT DONE AROUND BREAKFAST TIME. IV ABX INFUSING PER EMAR. BED IN LOW, BED ALARM ON FOR SAFETY. CALL LIGHT IN REACH, CARE CONTINUES, WILL REPORT TO ONCOMING RN.
[2024-11-27 08:04] VITALS: BP 167/67
[2024-11-27 08:04] LABS: Anion Gap 11.0 mmol/L (3-11); Blood Urea Nitrogen 13.0 mg/dL (8-24); CO2, Blood 22.0 mmol/L (21-32); Calcium, Blood 8.3 mg/dL (8.5-10.1); Chloride, Blood 114.0 mmol/L (98-108); Creatinine, Blood 0.83 mg/dL (0.60-1.20); Glucose, Blood 90.0 mg/dL (70-99); Magnesium, Blood 2.0 mg/dL (1.6-2.4); Potassium, Blood 3.8 mmol/L (3.5-5.5); Sodium, Blood 143.0 mmol/L (136-145)
[2024-11-27 09:24] LABS: pH Blood Venous 7.38 (7.34-7.37)
[2024-11-27 17:55] VITALS: BP 131/68
--- NOTE | 2024-11-27 18:07 | NUR ---
End of shift note. Pt has been in the recliner for much of the day. Pt worked with PT this morning. Pt was only able to stand a couple of times due to dizziness complaints. Pt was straight cathed as needed this shift. Pt was able to void while on the commode. Pt was made med status with no tele. [facility] was updated on status of Pt. Pt is able to make needs known. Call light is within reach.
[2024-11-27 20:35] VITALS: BP 167/77
--- NOTE | 2024-11-27 22:28 | NUR ---
REPORT GIVEN TO ROSA MARIA PAPPAS ON MEDICAL FLOOR. PT BEING TRANSFER TO ROOM 338 WITH ALL BELONGINGS AND PAPERWORK.
[2024-11-27 22:39] VITALS: BP 168/77
--- NOTE | 2024-11-28 01:43 | NUR ---
TRANSFER NOTE FOR 11/27/24 0555 PT WAS TRANSFERRED UP FROM PCU 3 TO ROOM 338 IN HIS BED. PT ALERT ORIENTED WITH INTERMITTENT CONFUSION. HES HERE FOR A NSTEMI ACUTE CORONARY SYNDROME. NO C/O CHEST PAIN OR PRESSURE ON TRANSFER. HE GETS STRAIGHT CATHED PRN. THEY DID A STRAIGHT CATH AT 2200 AND GOT 500CC OUTPUT. VSS ON RA. BED ALARM ON AT ALL TIMES. HE IS ABLE TO TAKE HIS PILLS WHOLE WITH WATER. THE PLAN IS FOR HIM TO DISCHARGE TO [facility] ON DISCHARGE. HES RESTING IN BED AT THIS TIME WITH CALL LIGHT IN REACH
--- NOTE | 2024-11-28 04:53 | NUR ---
SHIFT SUMMARY PT WAS A TRANSFER FROM THE PCU THIS SHIFT. HES ALERT ORIENTED WITH SOME CONFUSION ABLE TO VERBALIZE NEEDS. HE REQUIRES TO BE STRAIGHT CATHED AT LEAST 3X A DAY. HE WAS STRAIGHT CATHD AT 0300 WITH 600CC OUT. HE REQUIRES 1 PERSON ASSIST TO GET OUT OF BED. ABLE TO TAKE HIS PILLS WHOLE WITH WATER. VSS ON RA SATTING WELL. NO C/O CHEST PAIN OR PRESSURE AT THIS TIME. REMAINS ON ROCEPHIN ORDERED. HE STILL HAS SMALL AMOUNTS OF BRUISING TO HIS LT GROIN WHERE HE HAD HIS ANGIO DONE. HE WILL DC TO [facility] WHEN HES READY FOR DC. RESTING IN BED AT THIS TIME WITH CALL LIGHT IN REACH AND BED ALARM ON
[2024-11-28 05:49] VITALS: BP 175/84
[2024-11-28 06:05] LABS: BASOPHILS ABSOLUTE AUTO 0.04 K/mm3 (0.00-0.23); BASOPHILS PERCENT AUTO 0 % (0-2); EOSINOPHILS ABSOLUTE AUTO 0.02 K/mm3 (0.00-0.68); EOSINOPHILS PERCENT AUTO 0 % (0-6); Hematocrit 38.7 % (37.0-53.0); Hemoglobin 13.0 g/dL (13.5-17.5); IMMATURE GRAN ABSOLUTE AUTO 0.17 K/mm3 (0.00-0.10); IMMATURE GRAN PERCENT AUTO 2 % (0-1); LYMPHOCYTES ABSOLUTE AUTO 0.65 K/mm3 (0.84-5.20); LYMPHOCYTES PERCENT AUTO 7 % (21-46); MONOCYTES ABSOLUTE AUTO 0.75 K/mm3 (0.16-1.47); MONOCYTES PERCENT AUTO 8 % (4-13); Mean Corpuscular HGB Conc 33.6 g/dL (31.5-36.5); Mean Corpuscular Volume 96 fL (80-100); NEUTROPHILS ABSOLUTE AUTO 7.89 K/mm3 (1.96-9.15); NEUTROPHILS PERCENT AUTO 83 % (41-73); NRBC ABSOLUTE 0.00 K/mm3 (0.00-0.02); NRBC Auto 0.0 /100 WBC (0.0-0.2); Platelet Count 140 K/mm3 (150-400); RDW Coefficient Variation 12.4 % (11.7-14.2); RDW Standard Deviation 43.3 fL (35.1-46.3)
[2024-11-28] MEDS ORDERED: NS 250 ML IV PRN (06:05)
[2024-11-28 06:21] LABS: Anion Gap 11.0 mmol/L (3-11); Blood Urea Nitrogen 14.0 mg/dL (8-24); CO2, Blood 22.0 mmol/L (21-32); Calcium, Blood 8.3 mg/dL (8.5-10.1); Chloride, Blood 114.0 mmol/L (98-108); Creatinine, Blood 0.63 mg/dL (0.60-1.20); Glucose, Blood 77.0 mg/dL (70-99); Potassium, Blood 4.0 mmol/L (3.5-5.5); Sodium, Blood 143.0 mmol/L (136-145)
[2024-11-28 07:50] VITALS: BP 165/67
--- NOTE | 2024-11-28 14:58 | NUR ---
pt discharged THE PT WAS DC'D TO [facility]. PT WAS MINIMAL ASSIST INTO THE WHEELCHAIR FOR TRANSFER. BELONGINGS RELEASED TO THE PT. PT WAS ACOMMPANIED BY THE AMBULANCE ESCORT
--- NOTE | 2024-11-28 15:46 | NUR ---
DISCHARGE PT LEFT WHILE THIS RN WAS ON LUNCH BREAK [id number]. PT AOX2/3, COPERATIVE, ABLE TO MAKE NEEDS KNOWN. PT IS 1 PERSON ASSIST TO BATHROOM TO AHVE BOWEL MOVEMENTS. PT DOES URINATE OUT OF PENIS SMALL AMOUNTS PT REPORTS. PERFORMED STRAIGHT CATH ONCE TODAY AT APRROXIMATELY 1100, WITH 600 OUTPUT. TRANSPORT WAS SUPPOSED TO ARRIVE AT 1300, WAS LATE. IV DC'D BY THIS RN WITHOUT DIFFICULTY. THIS RN ATTEMPTED TO GIVE REPORT TO CJ PYLE RN, HAD TO LEAVE VOICEMAIL WITH CALLBACK REQUEST. WHEN CAME BACK FROM LUNCH, ASKED IF REHAB FACILITY HAD CALLED FOR REPORT, [employer] DENIES ANY CALLS.
== END 2024-11-28 14:30 | DRG 323 ==
LOC: ER 19:23 → MEDS 19:24 → PCU 11-25 15:22 → MEDS 11-25 15:22 → PCU 11-25 17:18 → MEDS 11-27 22:32
PROVIDERS: Emergency Medicine; Family Medicine; Internal Medicine Cardiovascular Disease; Student in an Organized Health Care Education/Training Program; ADMIT Student in an Organized Health Care Education/Training Program
PROC: B41F1ZZ Fluoroscopy of Right Lower Extremity Arteries using Low Osmolar Contrast (ICD-10-PCS; principal; 2024-11-26)
PROC: 02F03ZZ Fragmentation in Coronary Artery, One Artery, Percutaneous Approach (ICD-10-PCS; principal; 2024-11-26)
PROC: B2131ZZ Fluoroscopy of Multiple Coronary Artery Bypass Grafts using Low Osmolar Contrast (ICD-10-PCS; principal; 2024-11-26)
PROC: 4A023N7 Measurement of Cardiac Sampling and Pressure, Left Heart, Percutaneous Approach (ICD-10-PCS; principal; 2024-11-26)
PROC: 027034Z Dilation of Coronary Artery, One Artery with Drug-eluting Intraluminal Device, Percutaneous Approach (ICD-10-PCS; principal; 2024-11-26)
DX: I21.4 Non-ST elevation (NSTEMI) myocardial infarction (principal); G93.41 Metabolic encephalopathy; J96.01 Acute respiratory failure with hypoxia; I13.0 Hypertensive heart and chronic kidney disease with heart failure and stage 1 through stage 4 chronic kidney disease, or unspecified chronic kidney disease; N39.0 Urinary tract infection, site not specified; E87.20 Acidosis, unspecified; I48.19 Other persistent atrial fibrillation; I50.22 Chronic systolic (congestive) heart failure; E78.5 Hyperlipidemia, unspecified; M19.90 Unspecified osteoarthritis, unspecified site; I25.2 Old myocardial infarction; N18.30 Chronic kidney disease, stage 3 unspecified; I25.10 Atherosclerotic heart disease of native coronary artery without angina pectoris; E11.22 Type 2 diabetes mellitus with diabetic chronic kidney disease; F03.90 Unspecified dementia, unspecified severity, without behavioral disturbance, psychotic disturbance, mood disturbance, and anxiety; E66.01 Morbid (severe) obesity due to excess calories; I25.5 Ischemic cardiomyopathy; I34.0 Nonrheumatic mitral (valve) insufficiency; I48.0 Paroxysmal atrial fibrillation; B96.29 Other Escherichia coli [E. coli] as the cause of diseases classified elsewhere; E86.0 Dehydration; Z68.27 Body mass index [BMI] 27.0-27.9, adult; Z79.82 Long term (current) use of aspirin; Z79.01 Long term (current) use of anticoagulants; Z79.02 Long term (current) use of antithrombotics/antiplatelets; Z79.891 Long term (current) use of opiate analgesic; Z87.81 Personal history of (healed) traumatic fracture; Z87.891 Personal history of nicotine dependence; Z79.899 Other long term (current) drug therapy; Z95.0 Presence of cardiac pacemaker; Z88.8 Allergy status to other drugs, medicaments and biological substances
CPT/HCPCS: 36415; 51701; 51798; 70450; 71045; 71046; 76937; 80048; 80053; 81001; 82140; 82803; 83605; 83735; 83880; 84100; 84443; 84484; 85025; 85347; 85610; 85730; 87077; 87086; 87186; 87507; 92972; 92978; 93005; 93010; 93459; 94640; 94664; 94762; 96361; 96365; 96372; 96374; 96375; 97116; 97162; 97530; 99152; 99153; 99285-25; A9270; C1725; C1753; C1761; C1769; C1874; C1887; C1894; G0378; J0696; J1644; J1650; J2250; J2270; J2470; J3010; J3475; J3480; J7030; J7050; Q9967

== ENCOUNTER 2025-02-12 14:59 | Inpatient (IN) | payer OTHER ==
[~2025-02-12] VITALS: Ht 177.8 cm; Wt 80.0 kg
[~2025-02-12 14:59] MED LIST changes: +DICLOFENAC SOD100 GM; +ELIQUIS5 M2; +ELIQUIS5 M2 PO; +FOLI1 PO; +GABA300 PO; +Imdur-ER60 MG PO; +JARDIANCE10 MG PO; +LIPITOR80 MG PO; +LOPE2C; +MEMA5TAB PO; +METO100ER; +PANT20 PO; +PRAZ1 PO; +Vitamin B-12100 MCG; +Vitamin B-12100 MCG PO
[2025-02-12 15:28] LABS: BASOPHILS ABSOLUTE AUTO 0.02 K/mm3 (0.00-0.23); BASOPHILS PERCENT AUTO 0 % (0-2); EOSINOPHILS ABSOLUTE AUTO 0.00 K/mm3 (0.00-0.68); EOSINOPHILS PERCENT AUTO 0 % (0-6); Hematocrit 36.3 % (37.0-53.0); Hemoglobin 12.2 g/dL (13.5-17.5); IMMATURE GRAN ABSOLUTE AUTO 0.09 K/mm3 (0.00-0.10); IMMATURE GRAN PERCENT AUTO 1 % (0-1); LYMPHOCYTES ABSOLUTE AUTO 0.34 K/mm3 (0.84-5.20); LYMPHOCYTES PERCENT AUTO 2 % (21-46); MONOCYTES ABSOLUTE AUTO 0.82 K/mm3 (0.16-1.47); MONOCYTES PERCENT AUTO 4 % (4-13); Mean Corpuscular HGB Conc 33.6 g/dL (31.5-36.5); Mean Corpuscular Volume 96 fL (80-100); NEUTROPHILS ABSOLUTE AUTO 18.04 K/mm3 (1.96-9.15); NEUTROPHILS PERCENT AUTO 93 % (41-73); NRBC ABSOLUTE 0.00 K/mm3 (0.00-0.02); NRBC Auto 0.0 /100 WBC (0.0-0.2); Platelet Count 163 K/mm3 (150-400); RDW Coefficient Variation 13.6 % (11.7-14.2); RDW Standard Deviation 47.8 fL (35.1-46.3)
[2025-02-12] MEDS ORDERED: NS 1,000 ML IV SCH (15:40)
[2025-02-12] MEDS ORDERED: Vancomycin (Pharmacy Consult) IV PRN (15:45)
[2025-02-12] MEDS ORDERED: CefTRIAXone Sodium 1,000 MG in NS 100 ML IV ONE (15:45)
[2025-02-12 16:00] LABS: Alanine Aminotransfer (ALT/SGP 25.0 U/L (12-78); Albumin, Blood 3.2 g/dL (3.4-5.0); Albumin/Globulin Ratio 1.0 (0.8-1.8); Anion Gap 10.0 mmol/L (3-11); Aspartate Aminotrans (AST/SGOT 45.0 U/L (12-37); Bilirubin, Total 0.8 mg/dL (0.1-1.0); Blood Urea Nitrogen 20.0 mg/dL (8-24); CO2, Blood 24.0 mmol/L (21-32); Calcium, Blood 8.9 mg/dL (8.5-10.1); Chloride, Blood 111.0 mmol/L (98-108); Creatinine, Blood 1.01 mg/dL (0.60-1.20); Globulin, Blood 3.2 g/dL (2.2-4.0); Glucose, Blood 127.0 mg/dL (70-99); Potassium, Blood 4.4 mmol/L (3.5-5.5); Sodium, Blood 141.0 mmol/L (136-145); Total Protein, Blood 6.4 g/dL (6.4-8.2)
[2025-02-12 16:47] LABS: Source, Urine Clean Catch
[2025-02-12 16:53] LABS: Bilirubin, Urine Neg (Neg); Color, Urine Yellow (P-Yellow); Glucose Qualitative, Urine 4+ (Neg); Ketones, Urine Neg (Neg); Leukocyte Esterase, Urine 3+ (Neg); Protein, Urine 2+ (Neg); Specific Gravity, Urine 1.015 (1.003-1.022); Urobilinogen, Urine NORM (Normal)
[2025-02-12] MEDS ORDERED: FLU VACC TS2025(65UP)/MF59C/PF 45 MCG/0.5 ML SYRINGE IM SCH (17:00)
[2025-02-12 17:02] LABS: Influenza A, PCR NEGATIVE (NEGATIVE); Influenza B, PCR NEGATIVE (NEGATIVE); Resp Syncytial Virus, PCR NEGATIVE (NEGATIVE); SARS-Cov-2 (COVID-19) PCR, MMC NEGATIVE (NEGATIVE)
[2025-02-12 17:06] LABS: White Blood Cells, Urine 25-50 /hpf (0-5)
[2025-02-12] MEDS ORDERED: Morphine Sulfate 4 MG/1 ML Injection IV ONE (17:10)
[2025-02-12] MEDS ORDERED: Piperacillin/Tazobactam Sod 3.375 GM in NS 100 ML IV ONE (17:35)
[2025-02-12 17:38] LABS: Prothrombin Time Results 13.0 Sec (9.7-11.5)
[2025-02-12 17:41] LABS: Anti-Xa UFH, PHA Monitoring >1.50 IU/mL
[2025-02-12] MEDS ORDERED: Heparin Sodium,Porcine/0.5 NS 500 ML IV SCH (17:55)
[2025-02-12] MEDS ORDERED: Heparin Sodium 5000 Units/ML 1ML MDV IV ONE (17:55)
--- NOTE | 2025-02-12 18:13 | NUR ---
ARRIVAL NOTE: PATIENT ARRIVES TO UNIT AND IS ALERT AND ORIENTED X4 & COOPERATIVE WITH HIS CARE. PATIENT IS ABLE TO MAKE NEEDS KNOWN,IS LETHARGIC AND SLEEPY. IS COMPLAINING OF 10/10 BACK AND HEADACHE PAIN. TREMAINE ADVOCATE FROM [facility] CAME WITH TREMAINE. TREMAINE VITAL SIGNS STABLE. THIS RN TO LOOK AT MEDICATIONS TO SEE WHAT PAIN MEDS HE HAS AVAILABLE.
[2025-02-12 18:15] VITALS: BP 136/56
[2025-02-12] MEDS ORDERED: CLOP75 PO (18:42)
[2025-02-12] MEDS ORDERED: Aldactone25 MG PO (18:50)
[2025-02-12] MEDS ORDERED: BISA10S PR (18:52)
[2025-02-12 20:17] VITALS: BP 141/58
[2025-02-12] MEDS ORDERED: Lactobacil 2-S.Thermo-Bifido 1 1 Cap PO SCH (21:00)
[2025-02-13] MEDS ORDERED: Piperacillin/Tazobactam Sod 3.375 GM in NS 100 ML IV SCH
[2025-02-13 00:14] VITALS: BP 135/63
[2025-02-13 03:04] VITALS: BP 125/60
[2025-02-13 03:12] LABS: BASOPHILS ABSOLUTE AUTO 0.01 K/mm3 (0.00-0.23); BASOPHILS PERCENT AUTO 0 % (0-2); EOSINOPHILS ABSOLUTE AUTO 0.00 K/mm3 (0.00-0.68); EOSINOPHILS PERCENT AUTO 0 % (0-6); Hematocrit 30.8 % (37.0-53.0); Hemoglobin 10.4 g/dL (13.5-17.5); IMMATURE GRAN ABSOLUTE AUTO 0.07 K/mm3 (0.00-0.10); IMMATURE GRAN PERCENT AUTO 1 % (0-1); LYMPHOCYTES ABSOLUTE AUTO 0.25 K/mm3 (0.84-5.20); LYMPHOCYTES PERCENT AUTO 2 % (21-46); MONOCYTES ABSOLUTE AUTO 0.79 K/mm3 (0.16-1.47); MONOCYTES PERCENT AUTO 6 % (4-13); Mean Corpuscular HGB Conc 33.8 g/dL (31.5-36.5); Mean Corpuscular Volume 95 fL (80-100); NEUTROPHILS ABSOLUTE AUTO 13.01 K/mm3 (1.96-9.15); NEUTROPHILS PERCENT AUTO 92 % (41-73); NRBC ABSOLUTE 0.00 K/mm3 (0.00-0.02); NRBC Auto 0.0 /100 WBC (0.0-0.2); Platelet Count 117 K/mm3 (150-400); RDW Coefficient Variation 13.8 % (11.7-14.2); RDW Standard Deviation 48.2 fL (35.1-46.3)
[2025-02-13 03:31] LABS: Alanine Aminotransfer (ALT/SGP 23.0 U/L (12-78); Albumin, Blood 2.7 g/dL (3.4-5.0); Albumin/Globulin Ratio 1.0 (0.8-1.8); Anion Gap 10.0 mmol/L (3-11); Aspartate Aminotrans (AST/SGOT 43.0 U/L (12-37); Bilirubin, Total 0.6 mg/dL (0.1-1.0); Blood Urea Nitrogen 20.0 mg/dL (8-24); CO2, Blood 23.0 mmol/L (21-32); Calcium, Blood 8.1 mg/dL (8.5-10.1); Chloride, Blood 113.0 mmol/L (98-108); Creatinine, Blood 0.96 mg/dL (0.60-1.20); Globulin, Blood 2.7 g/dL (2.2-4.0); Glucose, Blood 120.0 mg/dL (70-99); Magnesium, Blood 1.8 mg/dL (1.6-2.4); Potassium, Blood 3.7 mmol/L (3.5-5.5); Sodium, Blood 142.0 mmol/L (136-145); Total Protein, Blood 5.4 g/dL (6.4-8.2)
[2025-02-13] MEDS ORDERED: Dose Adjust by Pharmacy XX STA ×3 (04:00→18:15)
--- NOTE | 2025-02-13 05:32 | NUR ---
SHIFT SUMMARY PT IS A&O X4, FORGETFUL AT TIMES AND A POOR HISTORIAN/ BED ALARM ACTIVE, ABLE TO MAKE NEEDS KNOWN, MOVING ALL EXTREMITIES WITH PURPOSE, OBEYS COMMANDS, REPOSITIONED WITH ASSISTANCE BY MEDICAL STAFF. CONTINUOUS SPO2, SPO2 GREATER THAN 92% ON 2L O2 VIA NC, LUNGS SOUND CLEAR WITH FINE CRACKLES AND DIMINISHED IN THE BASES. CONTINUOUS TELE MONITORING, DUAL PACED 60 S, PULSES PRESENT T/O, BP STABLE WITH MAP GREATER THAN 65, PT REPORTS CHEST PAIN BUT STATES THAT IT IS BETTER THAN WHEN HE FIRST CAME INTO THE HOSPITAL. BOWEL TONES PRESENT IN ALL 4Q, PT DENIES FEELINGS OF NAUSEA OR CONSTIPATION. PT UNABLE TO VOID IND, PHILLIP CATH PLACED AFTER BLADDER SCAN OF GREATER THAN 600, PHILLIP CATH IS PATENT/SECURE/DRAINING TO GRAVITY, URINE YELLOW AND CLOUDY. BED LOWEST POSITION, CALL LIGHT IN REACH, AWAITING TO GIVE REPORT TO ONCOMING RN.
[2025-02-13 08:45] VITALS: BP 129/79
[2025-02-13 13:04] VITALS: BP 156/69
[2025-02-13] MEDS ORDERED: Insulin Human Lispro 100 Units/ML 3ML Syringe SC SCH ×2 (16:30→18:00)
--- NOTE | 2025-02-13 18:39 | NUR ---
SHIFT SUMMARY: PT A&OX4 MOST OF THE DAY. BECAME RESTLESS AND A LITTLE CONFUSED AROUND 1700. PT WANTED TO GET OUT OF BED. WAS ASSISTED WITH 2 PERSON AND A FWW TO CHAIR. TOLERATED DINNER WELL WITH MANAGER HOUSE AT BEDSIDE. PT REPORTED CP PERIODICALLY THHROUGHOUT THE DAY. PROVIDER AWARE AND NO ORDERS GIVE. PT DID SEE CARDIOLOGY TODAY AND PLAN FOR MEDICAL MANAGEMENT WITHOUT ANY SURGICAL INTERVENTIONS. V PACED. VSS. MAP >65. PHILLIP REMAINS ON PLACE. ON RA. NO SIGNIFICANT EVENTS HAPPENED DURING THIS SHIFT.
[2025-02-13 20:52] VITALS: BP 144/67
[2025-02-13 23:21] VITALS: BP 118/54
[2025-02-14] VITALS (7 sets, daily range): BP systolic 123–159; BP diastolic 57–99
[2025-02-14] MEDS ORDERED: Dose Adjust by Pharmacy XX STA ×3 (00:17→21:29)
[2025-02-14 04:03] LABS: BASOPHILS ABSOLUTE AUTO 0.01 K/mm3 (0.00-0.23); BASOPHILS PERCENT AUTO 0 % (0-2); EOSINOPHILS ABSOLUTE AUTO 0.00 K/mm3 (0.00-0.68); EOSINOPHILS PERCENT AUTO 0 % (0-6); Hematocrit 29.7 % (37.0-53.0); Hemoglobin 9.9 g/dL (13.5-17.5); IMMATURE GRAN ABSOLUTE AUTO 0.05 K/mm3 (0.00-0.10); IMMATURE GRAN PERCENT AUTO 1 % (0-1); LYMPHOCYTES ABSOLUTE AUTO 0.46 K/mm3 (0.84-5.20); LYMPHOCYTES PERCENT AUTO 5 % (21-46); MONOCYTES ABSOLUTE AUTO 0.66 K/mm3 (0.16-1.47); MONOCYTES PERCENT AUTO 7 % (4-13); Mean Corpuscular HGB Conc 33.3 g/dL (31.5-36.5); Mean Corpuscular Volume 96 fL (80-100); NEUTROPHILS ABSOLUTE AUTO 8.23 K/mm3 (1.96-9.15); NEUTROPHILS PERCENT AUTO 88 % (41-73); NRBC ABSOLUTE 0.00 K/mm3 (0.00-0.02); NRBC Auto 0.0 /100 WBC (0.0-0.2); Platelet Count 97 K/mm3 (150-400); RDW Coefficient Variation 14.3 % (11.7-14.2); RDW Standard Deviation 50.0 fL (35.1-46.3)
[2025-02-14 04:24] LABS: Anion Gap 8.0 mmol/L (3-11); Blood Urea Nitrogen 22.0 mg/dL (8-24); CO2, Blood 25.0 mmol/L (21-32); Calcium, Blood 8.2 mg/dL (8.5-10.1); Chloride, Blood 110.0 mmol/L (98-108); Creatinine, Blood 1.04 mg/dL (0.60-1.20); Glucose, Blood 117.0 mg/dL (70-99); Potassium, Blood 3.3 mmol/L (3.5-5.5); Sodium, Blood 140.0 mmol/L (136-145)
--- NOTE | 2025-02-14 06:24 | NUR ---
SHIFT SUMMARY PT IS A&O X4, FORGETFUL AT TIMES AND A POOR HISTORIAN/ BED ALARM ACTIVE, ABLE TO MAKE NEEDS KNOWN, MOVING ALL EXTREMITIES WITH PURPOSE, OBEYS COMMANDS, REPOSITIONED WITH ASSISTANCE BY MEDICAL STAFF. CONTINUOUS SPO2, SPO2 GREATER THAN 92% ON RA, LUNGS SOUND CLEAR WITH DIMINISHED BASES. CONTINUOUS TELE MONITORING, DUAL PACED 60-90 S, PULSES PRESENT T/O, BP STABLE WITH MAP GREATER THAN 65, PT DENIES CHEST P/P T/O THIS SHIFT BOWEL TONES PRESENT IN ALL 4Q, PT DENIES FEELINGS OF NAUSEA OR CONSTIPATION. PHILLIP CATH IS PATENT/SECURE/DRAINING TO GRAVITY, URINE YELLOW. BED LOWEST POSITION, CALL LIGHT IN REACH, AWAITING TO GIVE REPORT TO ONCOMING RN.
[2025-02-14] MEDS ORDERED: Folic Acid 1 MG TAB PO SCH (09:00)
--- NOTE | 2025-02-14 17:52 | NUR ---
Pt. is awake in bed and welcomed my visit. Pt. is pleasant but displays [place]. This supervisor model making came close to the Pt. and facilitated a life review, as this palain has seen this Pt. on previous visits. Pt. displayed evidence of being encouraged. Considered matters of malcom and culture, as the Pt. verbalized that he cam from [place]. Pt. welcomed this supervisor model making to return tommorrow as visitors make him somnolent.
--- NOTE | 2025-02-14 18:00 | NUR ---
GISELE SUMMARY/ TRANSFER TO MEDICAL FLOOR: PT A&OX4. CONFUSED AT TIMES BUT IS AWARE THAT HE IS CONFUSED. MAKES NEEDS KNOWN TO STAFF AND FOLLOWS COMMANDS. PT REMAINED FREE OF CP, PRESSURE, TIGHTNESS OR SOB. VSS MAP >65. PT ON RA ALL DAY. GOT UP TO THE CHAIR FOR LUNCH AND BREAKFAST TODAY, MOTIVATED TO WORK WITH THERAPY TO AVOID HAVING TO GO BACK TO A REHAB CENTER. HEPARIN GTT CONTINUES. NO SIGNIFICANT EVENTS HAPPENED DURING THIS SHIFT. PT TRANSFERED TO ROOM 357. REPORT CALLED TO MEDICAL FLOOR. BELONGINGS COLLECTED AND TAKEN WITH PT. KALIN LÓPEZ CALLED AND MESSAGE WAS LEFT NOTIFYING HIM ABOUT PT TRANSFER. THIS RN WAS UNABLE TO GET AHOLD OF KALIN HENSLEY OR NITIN JOSE.
--- NOTE | 2025-02-14 19:38 | NUR ---
TRANSFER SUMMARY PT TRANSFERRED TO 357 FORM PCU20, HEPARIN GTT INFUSING ORDERED RATE OF 13 UNITS/KG/HR. POWERGLIDE TO LEFT UPPER ARM AND RFA IV. INFUSING IV EXTENDED ZOSYN. PT HAD ALREADY EATEN DINNER PRIOR TO TRANSFER TO UNIT. INSULIN PEN PLACED IN MED DRAWER. BELONGINGS REVIWED AND ONLY HAS ONE HEARING AID AT BEDSIDE IN A BAG, NO ENVIRONMENTAL ENGINEER SCIENTIST OR BATTERIES PRESENT. WASNT ON UNIT VERY LONG PRIOR TO SHIFT CHANGE.
[2025-02-14] MEDS ORDERED: Heparin Sodium 5000 Units/ML 1ML MDV IV ONE (21:30)
[2025-02-15] MEDS ORDERED: NS 250 ML IV PRN (00:05)
[2025-02-15 00:51] VITALS: BP 128/54
[2025-02-15 04:13] LABS: BASOPHILS ABSOLUTE AUTO 0.01 K/mm3 (0.00-0.23); BASOPHILS PERCENT AUTO 0 % (0-2); EOSINOPHILS ABSOLUTE AUTO 0.01 K/mm3 (0.00-0.68); EOSINOPHILS PERCENT AUTO 0 % (0-6); Hematocrit 29.2 % (37.0-53.0); Hemoglobin 9.9 g/dL (13.5-17.5); IMMATURE GRAN ABSOLUTE AUTO 0.02 K/mm3 (0.00-0.10); IMMATURE GRAN PERCENT AUTO 0 % (0-1); LYMPHOCYTES ABSOLUTE AUTO 0.37 K/mm3 (0.84-5.20); LYMPHOCYTES PERCENT AUTO 5 % (21-46); MONOCYTES ABSOLUTE AUTO 0.52 K/mm3 (0.16-1.47); MONOCYTES PERCENT AUTO 7 % (4-13); Mean Corpuscular HGB Conc 33.9 g/dL (31.5-36.5); Mean Corpuscular Volume 95 fL (80-100); NEUTROPHILS ABSOLUTE AUTO 7.04 K/mm3 (1.96-9.15); NEUTROPHILS PERCENT AUTO 88 % (41-73); NRBC ABSOLUTE 0.00 K/mm3 (0.00-0.02); NRBC Auto 0.0 /100 WBC (0.0-0.2); Platelet Count 106 K/mm3 (150-400); RDW Coefficient Variation 13.8 % (11.7-14.2); RDW Standard Deviation 48.1 fL (35.1-46.3)
[2025-02-15 04:15] VITALS: BP 139/58
[2025-02-15 04:41] LABS: Alanine Aminotransfer (ALT/SGP 26.0 U/L (12-78); Albumin, Blood 2.3 g/dL (3.4-5.0); Albumin/Globulin Ratio 0.8 (0.8-1.8); Anion Gap 9.0 mmol/L (3-11); Aspartate Aminotrans (AST/SGOT 36.0 U/L (12-37); Bilirubin, Total 0.8 mg/dL (0.1-1.0); Blood Urea Nitrogen 23.0 mg/dL (8-24); CO2, Blood 21.0 mmol/L (21-32); Calcium, Blood 8.0 mg/dL (8.5-10.1); Chloride, Blood 114.0 mmol/L (98-108); Creatinine, Blood 0.93 mg/dL (0.60-1.20); Globulin, Blood 3.0 g/dL (2.2-4.0); Glucose, Blood 103.0 mg/dL (70-99); Potassium, Blood 3.6 mmol/L (3.5-5.5); Sodium, Blood 140.0 mmol/L (136-145); Total Protein, Blood 5.3 g/dL (6.4-8.2)
[2025-02-15 04:46] LABS: Fibrinogen 586.0 mg/dL (170-430); Prothrombin Time Results 11.9 Sec (9.7-11.5)
[2025-02-15] MEDS ORDERED: Dose Adjust by Pharmacy XX STA ×2 (05:07→11:58)
--- NOTE | 2025-02-15 05:31 | NUR ---
NOC SHIFT SUMMARY PT A&0X3, VSS, TOLERATING PO, VOIDING, AND DENIED PAIN. POTASSIUM LAB IMPROVED FROM YESTERDAY AND WNL AT 3.6. HEP DRIP DOSAGE ADJUSTED BY PHARMACY X2 THIS SHIFT AND CONT TO INFUSE PER ORDER. NO OTHER ACUTE CHANGES. CALL LIGHT WITHIN REACH AND PT ABLE TO MAKE NEEDS KNOWN.
[2025-02-15] MEDS ORDERED: Meropenem 2,000 MG in NS 250 ML IV SCH (07:30)
[2025-02-15 07:44] VITALS: BP 153/61
[2025-02-15] MEDS ORDERED: AMLO5 PO (10:10)
[2025-02-15] MEDS ORDERED: HYDROcodone 10-APAP 325 TAB PO PRN (11:00)
[2025-02-15 16:23] VITALS: BP 146/64
--- NOTE | 2025-02-15 18:30 | NUR ---
SHIFT SUMMARY PATIENT A/OX3-4, ABLE TO MAKE NEEDS KNOWN. PLEASANT AND COOPERATIVE WITH CARE, [facility]. PATIENT 1 PERSON ASSIST STAND PIVOT TRANSFER, INCONTINENT OF BOWEL THIS SHIFT. PHILLIP CARE PROVIDED. P[ATIENT COMPLAINING OF BACK PAIN THIS MD CONCHA NOTIFIED THAT PATIENT TAKES HYDROCODONE PRN AT HOME, ORDER RESTARTED WHILE HERE IN THE HOSPITAL.SPEECH THERAPY ASSESSED PATIENT THIS MORNING AND DIET UPGRADED TO THIN LIQUIDS, SOFT BITE SIZE HEART HEALTHY. TELEMETRY IN PLACE, V AND AV PACED THROUGHOUT THE SHIFT AND THIS EVENING PATIENT WITH BIGEMINAL PVCs, TELEMETRY NOTIFIED DR. BRIAN, WILL CONITNUE TO MONITOR. CONTINUOUS PULSE OX IN PLACE, SPO2 WNL ON ROOM AIR, ARTIFACT READING WITH HEART RATE AND READING HEART RATE IN 30s, CALLED TELEMETRY TO CONFIRM AND HEART RATE ACTUALLY IN 70s. HEPARIN GTT RUNNING PER JUN, INCREASED THIS SHIFT X1. NO OTHER CONCERNS AT THIS TIME, WILL CONTINUE TO MONITOR.
[2025-02-15 20:05] VITALS: BP 137/62
[2025-02-16 00:14] LABS: BASOPHILS ABSOLUTE AUTO 0.01 K/mm3 (0.00-0.23); BASOPHILS PERCENT AUTO 0 % (0-2); EOSINOPHILS ABSOLUTE AUTO 0.02 K/mm3 (0.00-0.68); EOSINOPHILS PERCENT AUTO 0 % (0-6); Hematocrit 29.2 % (37.0-53.0); Hemoglobin 9.8 g/dL (13.5-17.5); IMMATURE GRAN ABSOLUTE AUTO 0.04 K/mm3 (0.00-0.10); IMMATURE GRAN PERCENT AUTO 1 % (0-1); LYMPHOCYTES ABSOLUTE AUTO 0.50 K/mm3 (0.84-5.20); LYMPHOCYTES PERCENT AUTO 7 % (21-46); MONOCYTES ABSOLUTE AUTO 0.53 K/mm3 (0.16-1.47); MONOCYTES PERCENT AUTO 8 % (4-13); Mean Corpuscular HGB Conc 33.6 g/dL (31.5-36.5); Mean Corpuscular Volume 95 fL (80-100); NEUTROPHILS ABSOLUTE AUTO 5.90 K/mm3 (1.96-9.15); NEUTROPHILS PERCENT AUTO 84 % (41-73); NRBC ABSOLUTE 0.00 K/mm3 (0.00-0.02); NRBC Auto 0.0 /100 WBC (0.0-0.2); Platelet Count 112 K/mm3 (150-400); RDW Coefficient Variation 13.7 % (11.7-14.2); RDW Standard Deviation 47.5 fL (35.1-46.3)
[2025-02-16 00:31] LABS: Anion Gap 9.0 mmol/L (3-11); Blood Urea Nitrogen 19.0 mg/dL (8-24); CO2, Blood 21.0 mmol/L (21-32); Calcium, Blood 8.2 mg/dL (8.5-10.1); Chloride, Blood 117.0 mmol/L (98-108); Creatinine, Blood 0.85 mg/dL (0.60-1.20); Glucose, Blood 98.0 mg/dL (70-99); Potassium, Blood 3.7 mmol/L (3.5-5.5); Sodium, Blood 143.0 mmol/L (136-145)
[2025-02-16] MEDS ORDERED: Dose Adjust by Pharmacy XX STA (01:22)
[2025-02-16 02:50] VITALS: BP 149/62
--- NOTE | 2025-02-16 04:50 | NUR ---
SHIFT SUMMARY ADMITTED FOR NSTEMI. DNR CODE. UTI/SEPSIS. PHILLIP IN PLACE. ACHS, LOW SS. STRICT I&O'S. SOFT BITE/CARDIAC DIET. MILDLY THICK LIQUIDS. POWERGLIDE IN LUE. TELE: NSR @ 65 BPM, BIGEMINAL PVC'S. PACER IN PLACE. A&O X3, APPEARS CONFUSED AT TIMES. HEPARIN DRIP INFUSING, PHARMACY MANAGED. 1-2 ASSIST PIVOT TO BSC. PAIN MEDICATION GIVEN THIS SHIFT. NITRO GIVEN THIS SHIFT. INCONTINENT OF BM THIS SHIFT. IV ANTIB RX ARE SCHEDULED. SELF-CATHS AT HOME. LIVES AT [facility].
[2025-02-16 07:44] VITALS: BP 148/51
--- NOTE | 2025-02-16 12:50 | NUR ---
Patient discharged to [facility] for continued PT/OT. Patient belongings bagged and in patient possession prior to transport. Patient assisted to transfer from chair to wheelchair by this RN. Patient transported via wheelchair by transporter. Report given to [facility] RN.
== END 2025-02-16 12:25 | DRG 698 ==
LOC: ER 14:59 → PCU 16:55 → MEDS 02-14 17:49 → ENPENDDIS 02-16 10:53 → MEDS 02-16 12:25
PROVIDERS: Emergency Medicine; Nurse Practitioner Acute Care; Student in an Organized Health Care Education/Training Program; ADMIT Student in an Organized Health Care Education/Training Program
DX: T83.518A Infection and inflammatory reaction due to other urinary catheter, initial encounter (principal); A41.51 Sepsis due to Escherichia coli [E. coli]; I21.4 Non-ST elevation (NSTEMI) myocardial infarction; R65.20 Severe sepsis without septic shock; G93.41 Metabolic encephalopathy; I13.0 Hypertensive heart and chronic kidney disease with heart failure and stage 1 through stage 4 chronic kidney disease, or unspecified chronic kidney disease; I50.22 Chronic systolic (congestive) heart failure; N39.0 Urinary tract infection, site not specified; E87.20 Acidosis, unspecified; Z66 Do not resuscitate; G89.29 Other chronic pain; E78.5 Hyperlipidemia, unspecified; M54.9 Dorsalgia, unspecified; M19.90 Unspecified osteoarthritis, unspecified site; F32.A Depression, unspecified; I48.0 Paroxysmal atrial fibrillation; E11.22 Type 2 diabetes mellitus with diabetic chronic kidney disease; N18.9 Chronic kidney disease, unspecified; E66.01 Morbid (severe) obesity due to excess calories; G47.33 Obstructive sleep apnea (adult) (pediatric); F03.90 Unspecified dementia, unspecified severity, without behavioral disturbance, psychotic disturbance, mood disturbance, and anxiety; I25.10 Atherosclerotic heart disease of native coronary artery without angina pectoris; N40.0 Benign prostatic hyperplasia without lower urinary tract symptoms; D69.6 Thrombocytopenia, unspecified; I25.2 Old myocardial infarction; Z95.5 Presence of coronary angioplasty implant and graft; Z88.8 Allergy status to other drugs, medicaments and biological substances; Z95.1 Presence of aortocoronary bypass graft; Z87.891 Personal history of nicotine dependence; Z95.0 Presence of cardiac pacemaker; Z79.01 Long term (current) use of anticoagulants; Z79.899 Other long term (current) drug therapy; Z79.84 Long term (current) use of oral hypoglycemic drugs; Z68.23 Body mass index [BMI] 23.0-23.9, adult
CPT/HCPCS: 36415; 51701; 71046; 80048; 80053; 81001; 82947; 83605; 83690; 83735; 83880; 84484; 85025; 85384; 85520; 85610; 85730; 87040; 87077; 87086; 87186; 87637; 92526; 92610; 93005; 93010; 94762; 96374; 97162; 97166; 97530; 97535; 99285-25; A9270; C1751; C8929; J0696; J1644; J2185; J2270; J2470; J2543; J3373; J7030; J7040; J7050; J7120; Q9957